=== PATIENT | male | born 1955 | race Caucasian/White ===

== ENCOUNTER 2020-09-09 10:01 | Observation (INO) | payer OTHER, SELFPAY ==
[2020-09-09] VITALS (7 sets, daily range): BP systolic 83–129; BP diastolic 57–91; PULSE 62–112; RESP 15–18; TEMP 36.1–37.8; O2SAT 97–98; BMI 29.7; BMI 29.4
--- NOTE | 2020-09-09 10:17 | EKG12_ITS ---
Test Reason : L EXT PAIN Blood Pressure : / mmHG Vent. Rate : 103 BPM Atrial Rate : 103 BPM P-R Int : 130 ms QRS Dur : 134 ms QT Int : 370 ms P-R-T Axes : 037 113 003 degrees QTc Int : 484 ms Sinus tachycardia Right bundle branch block Left posterior fascicular block Bifascicular block Abnormal ECG Confirmed by OSWALD ZAMAN, ENZO ([id number]), advertising editor HERNANDO AYALA ([id number]) on 09/10/2020 2:27:46 PM Referred By: PL Confirmed By:ENZO AKESR MD
--- NOTE | 2020-09-09 10:17 | VDLE_ITS ---
Reason For Study: Swelling RIGHT LEFT CFV is compressible, spontaneous, phasic, Lt CFV, LT FV, Lt PopV, Lt T/P Trunk, Lt competent and demonstrates normal GastrocV, Lt PTV, and Lt PeroV are dilated augmentation. and non compressible consistent with acute Procedure DVT This is a venous duplex using B-mode, color flow and spectral Doppler. Lt GSV is dilated and non compressible Exam performed portable in ED. consistent with acute SVT. A preliminary report was called and/or faxed to Dr. Quinones. VL/Venous Duplex US, Unilateral Interpretation Summary Acute deep vein thrombosis is noted in the left common femoral vein. Acute deep vein thrombosis is noted in the left femoral vein. Acute deep vein thrombosis is noted in the left popliteal vein. Acute deep vein thrombosis is noted in the left tibio-peroneal trunk. Acute susana p vein thrombosis is noted in the left posterior tibial vein. Acute deep vein thrombosis is noted in the left peroneal vein. Acute deep vein thrombosis is noted in the left gastrocnemius vein. Acute superficial thrombophlebitis is noted in the left great saphenous vein. Ordering Physician: Roque Quinones Performed By: Yara Hardy RDCS, RVT
--- NOTE | 2020-09-09 10:23 | EDS_ITS ---
HPI History of Present Illness HPI Narrative: Patient present with left lower extremity swelling. He noticed last evening that he had some very mild discomfort up in his left groin. He woke up at about 4 AM today and noticed the leg was more swollen. He states it does not hurt and he does not want anything for pain. He has no trauma or injury. He has no recent travel, surgery, immobilization, personal or family history of DVT or PE. He did have surgery for quadriceps repair back in the first week of January 2020. He had recovered well from that. He has no chest pain palpitations or shortness of breath. Chief Complaint: Lower Extremity Injury Informant: patient PFSH PFS Home Medications NK 09/09/20 [History Last Taken Unknown] Allergy/AdvReac Type Severity Reaction Status Date / Time No Known Allergies Allergy Verified 09/09/20 10:04 Family History (Updated 09/09/20 @ 15:[address] Aysha Mendez DO) Sister Breast cancer Sister Breast cancer Father COPD (chronic obstructive pulmonary disease) Other Cancer Surgical History (Updated 09/09/20 @ 15:[address] Aysha Mendez DO) H/O knee surgery Social History (Updated 09/09/20 @ 15:[address] Aysha Mendez DO) Smoking Status: Never smoker alcohol intake: never substance use type: does not use ROS ROS ED Eyes Eyes: Denies change in vision ENT ENT ED: Denies epistaxis Cardiovascular Cardiovascular: Denies chest pain, dyspnea on exertion or palpitations Respiratory/Chest Respiratory/Chest: Denies hemoptysis, shortness of breath at rest, sputum or wheezing Gastrointestinal Gastrointestinal: Denies abdominal pain, hematochezia or melena Genitourinary Genitourinary ED: Denies hematuria Musculoskeletal Musculoskeletal: Reports as per HPI; Denies back pain, joint pain or muscle weakness Integumentary Reports as per HPI; Denies lesions or rash Neurologic Neurologic: Denies focal weakness or numbness Psychiatric Psychiatric: Denies suicidal thoughts Endocrine Endocrinology: Denies polyuria Hematologic/Lymphatic Hematologic/Lymphatic: Denies easy bleeding Allergic/Immunologic Allergic/Immunologic ED: Denies throat swelling EXAM Physical Exam Const Vital Signs: 09/09/20 10:02 09/09/20 10:08 Temperature 96.9 F L Temperature Source Temporal Pulse Rate 112 H 109 H Respiratory Rate 18 15 Blood Pressure 121/82 H Blood Pressure Mean 95 Pulse Ox 97 98 Oxygen Delivery Method Room Air Room Air Positive well nourished, well developed and healthy appearing General Appearance ED: cooperative, well kempt and well developed Orientation / Consciousness: awake, oriented to person, oriented to place and oriented to time HEENT Reports normocephalic, head/scalp atraumatic and moist mucous membranes normocephalic and atraumatic Face and Sinus: normal facial exam; Negative for facial erythema or facial edema Nose: Negative for epistaxis General Ear: No hearing grossly impaired Mouth ED: Yes moist mucous membranes normal, No muffled voice and Yes other Mouth: No muffled voice and other Throat: posterior oropharynx abnormal Eyes conjunctivae normal General Eye ED: Yes normal appearance of both eyes Neck full ROM General: normal visual inspection Chest Wall Chest: symmetrical chest wall rise Resp normal respiratory effort, normal air movement and no use of accessory muscles Auscultation: Negative for wheezes Cardio regular rate, regular rhythm and no murmurs Peripheral Pulses: pulses 2+ throughout GI normal to inspection, nondistended, normoactive bowel sounds, soft to palpation and non-tender no CVA tenderness Back/Spine normal ROM General Back: Negative for CVA tenderness Cervical Spine: cervical ROM normal Extremity Extremity Narrative: Extremity is obviously larger than the left. It is somewhat ruborous in color. It is not cold. He has excellent biphasic distal pulses both dorsalis pedis and posterior tibial. Exam is most consistent with DVT. There is a well-healed scar over his knee but this does not look infected. Neuro oriented x3 Sensorium / Orientation: awake and alert Psych mental status grossly normal Skin no rashes or lesions noted General Skin Exam: Negative for mottling MDM MDM MDM Narrative Medical decision making narrative: Patient does have extensive DVT on the left leg. It does proximal to the inguinal ligament. In light of the wrap that he had which this developed, extensive nature I think inpatient management is more appropriate. The case was discussed with Dr. Mendez. Patient will be placed in observation to medical floor at this time. Lab Data Attestation: I reviewed the patient's lab results. Labs: Laboratory Results - last 24 hr 09/09/20 09/09/20 09/09/20 10:30 10:30 10:30 WBC 11.8 H RBC 6.22 H Hgb 18.1 H* Hct 53.3 MCV 85.7 MCH 29.1 MCHC 34.0 RDW Std Deviation 38.7 RDW Coeff of Katty 12.5 Plt Count 160 MPV 10.3 Immature Gran % (Auto) 0.400 Neut % (Auto) 77.5 H Lymph % (Auto) 11.7 L Mcnairy % (Auto) 8.9 Eos % (Auto) 0.8 Baso % (Auto) 0.7 Absolute Neuts (auto) 9.1 H Absolute Lymphs (auto) 1.38 Nucleated RBC % 0 Diff Path Review May foll Platelet Estimate ADEQUATE RBC Morphology NORM C+C PT 13.4 INR 1.1 APTT 29.6 Sodium 129 L Potassium 4.4 Chloride 94 L Carbon Dioxide 28.0 Anion Gap 7 BUN 14 Creatinine 1.26 Estim Creat Clear Calc 61.96 Est GFR (MDRD) Af Amer 74 Est GFR (MDRD) Non-Af 61 BUN/Creatinine Ratio 11.1 Glucose 388 H Calcium 9.0 Radiography Diagnostic Testing: Radiology Impression Venous Doppler Study 09/09/20 10:17 Interpretation Summary Acute deep vein thrombosis is noted in the left common femoral vein. Acute deep vein thrombosis is noted in the left femoral vein. Acute deep vein thrombosis is noted in the left popliteal vein. Acute deep vein thrombosis is noted in the left tibio-peroneal trunk. Acute deep vein thrombosis is noted in the left posterior tibial vein. Acute deep vein thrombosis is noted in the left peroneal vein. Acute deep vein thrombosis is noted in the left gastrocnemius vein. Acute superficial thrombophlebitis is noted in the left great saphenous vein. Ordering Physician: Roque Quinones Performed By: Yara Hardy, REBEL, RVT Discharge Plan Dx/Rx/DC Orders Clinical Impression: DVT (deep venous thrombosis) Disposition Disposition: Acute Care [facility] Discharge Date/Time: 09/09/20 12:54
--- NOTE | 2020-09-09 10:24 | NURSING ---
NO OLD EKGS
[2020-09-09 10:47] LABS: Absolute Lymphocyte Count 1.38 X10^3/uL (0.83-4.51); Absolute Neutrophil Count 9.1 X10^3/uL (2.0-7.7); Basophil# 0.08 X10^3/uL; Basophil% 0.7 % (0-1); Eosinophil# 0.09 X10^3/uL; Eosinophils% 0.8 % (0-5); Hematocrit 53.3 % (40-54); Lymphocyte # 1.38 X10^3/ul (0.83-4.51); Lymphocyte % 11.7 % (19-41); Mean Corpuscular Hgb 29.1 pg (27.0-32.0); Mean Corpuscular Volume 85.7 fL (80-94); Mean Platelet Vol. 10.3 fl (6.2-12.0); Monocyte# 1.04 X10^3/uL; Monocyte% 8.9 % (0-10); NRBC Flagged by Analyzer 0 % (0-5); Neutrophil # 9.11 X10^3/uL (2.7-7.7); Neutrophil % 77.5 % (47-70); Platelet Count 160 K/mm3 (150-450); RBC Distribution Width CV 12.5 % (11.6-14.6); RBC Distribution Width SD 38.7 fl (35.1-43.9); Red Blood Count 6.22 M/mm3 (4.6-6.2); White Blood Count 11.8 K/mm3 (4.4-11.0)
[2020-09-09 10:49] LABS: Differential Indicated SCAN CRITERIA MET; Hemoglobin 18.1 g/dL (13.0-16.5)
[2020-09-09 10:52] LABS: Anion Gap 7 (5-15); BUN 14 mg/dL (7-18); BUN/Creat Ratio 11.1 RATIO (10-20); Chloride 94 mmol/L (98-107); Creatinine, Serum 1.26 mg/dL (0.70-1.30); EST Glomerular Filtration Rate 61 mL/min (>60); Est Glom Filt Rate - Afr Amer 74 mL/min (>60); Estimated Creatinine Clearance 61.96 ml/min; Glucose 388 mg/dL (74-106); Potassium 4.4 mmol/L (3.5-5.1); Sodium Level 129 mmol/L (136-145)
[2020-09-09 10:54] LABS: International Normalized Ratio 1.1; Prothrombin Time (Protime)PT. 13.4 SECONDS (11.7-14.9)
[2020-09-09 10:55] LABS: Partial Thromboplast Time 29.6 Seconds (24.1-36.2)
[2020-09-09 11:19] LABS: Platelet Estimate ADEQUATE (ADEQ); Red Cell Morphology NORM C+C NORMAL (NORM C&C)
--- NOTE | 2020-09-09 12:35 | ECHOCS_ITS ---
Reason For Study: Possible PE, DVT Procedure This was a 2D Doppler, Color Flow transthoracic echocardiogram. The study was technically difficult. Exam performed portable in patient room. Left Ventricle Normal LV size. Left ventricular systolic function is normal. The estimated ejection fraction is 55 %. Stage 1 diastolic dysfunction. No regional wall motion abnormalities noted. Right Ventricle Normal RV size. Normal systolic function. Atria Normal left atrium. Normal right atrium. Mitral Valve Normal mitral valve. Tricuspid Valve Normal tricuspid valve. Aortic Valve The aortic valve is not well visualized. Pulmonic Valve Normal pulmonic valve. Great Vessels Normal aortic root. The pulmonary artery is normal size. Normal inferior vena cava. Pericardium/Pleural No pericardial effusion. Medication Diluted definity 3.5ml given slow IV push to enhance endocardial definition. MMode/2D Measurements & Calculations LVIDd: 4.3 cm IVSd: 1.0 cm Ao root diam: 3.0 cm LVIDs: 2.4 cm LVPWd: 0.87 cm FS: 44.4 % LAV(MOD-bp): 26.3 ml LA A4 area: 9.3 cm2 LA dimension(2D): 4.4 cm LAV(MOD-bp) Indexed: 12.5 ml/m2 LAV(MOD-sp2): 34.3 ml LAV(MOD-sp4): 16.5 ml Doppler Measurements & Calculations MV E max brendan: 62.3 cm/sec Lat Peak E' Brendan: 6.5 cm/sec Med Peak E' Brendan: 4.5 cm/sec MV A max brendan: 90.7 cm/sec E/E' lat: 9.6 E/E' med: 14.0 MV E/A: 0.69 Ao V2 max: 127.4 cm/sec LV V1 max: 96.5 cm/sec PA V2 max: 128.9 cm/sec Ao max P.5 mmHg LV V1 max P.7 mmHg ECHO/Echo Complete W/ Contrast Interpretation Summary Normal LV size. Left ventricular systolic function is normal. The estimated ejection fraction is 55 %. Stage 1 diastolic dysfunction. Contrast injection was performed. Ordering Physician: Aysha Mendez Performed By: Cady Sandoval RDCS
[2020-09-09] MEDS: Insulin Lispro 100 UNIT/ML INSULN.PEN 10 UNIT SC (12:40)
--- NOTE | 2020-09-09 12:43 | NURSING ---
[address] ARMENTA
[2020-09-09] MEDS: Enoxaparin 100 MG/ML Syringe 90 MG SC ×2 (15:12→21:02)
--- NOTE | 2020-09-09 15:18 | HP.PCM.HOS_ITS ---
HPI - General General Date of Admission: 09/09/20 HPI Narrative LITZY HERNDON, is a 64 M who presented to the emergency department [facility] on 09/09/2020 for left lower extremity swelling. The patient reports ported that last evening he noted that he had some very mild discomfort in his left groin and he woke up approximately 4 AM today and noticed his leg was swollen. He denies any associated pain but states it feels tight. He has had no recent trauma, injury, travel, immobilization, surgery, or family or personal history of DVT/PE. He did have a quadriceps repair in December 2019 but had recovered from that well and had not had any issues other than some mild swelling intermittently at the knee joint. He reports postoperatively he was on aspirin low-dose for the time being but he has been off this for some time. He does not follow regularly with a physician. He has had no cancer screening. He does admit to a family history of breast cancer and lung cancer. He denies any chest pain or shortness of breath. His vital signs were overall unremarkable. He is afebrile and was initially tachycardic on presentation but this resolved, his blood pressures were normal. His respiratory [place] rate was 15 and his oxygen saturation was 98% on room air. His CBC showed a mildly elevated white count and an erythrocytosis. His platelet count was normal. He had mild hyponatremia with a sodium of 129 but his blood sugar was 388 and sodium corrected is 133. His BMP was otherwise normal. Per discussion with the emergency physician a left lower extremity duplex showed extensive clot clear up into his femoral artery. The read on this is pending at admission. I reviewed his EKG and it shows a right bundle branch block with [id number]. He was started on enoxaparin. He is also given 10 units of subcu Lantus for his blood sugar. The patient does not have a history of diabetes. He will be admitted to the medical floor for further treatment. [facility] Home Medications NK 09/09/20 [History Last Taken Unknown] Allergy/AdvReac Type Severity Reaction Status Date / Time No Known Allergies Allergy Verified 09/09/20 10:04 Family History (Updated 09/09/20 @ 15:[address] Aysha Mendez DO) Sister Breast cancer Sister Breast cancer Father COPD (chronic obstructive pulmonary disease) Other Cancer Surgical History (Updated 09/09/20 @ 15:[address] Aysha Mendez DO) H/O knee surgery Social History (Updated 09/09/20 @ 15:[address] Aysha Mendez DO) Smoking Status: Never smoker alcohol intake: never substance use type: does not use ROS Constitutional Constitutional: Denies anorexia, change in weight, chills, fatigue, fever(s), malaise, night sweats, weakness or other Eyes Eyes: Denies blurry vision, change in eye color, change in vision, discharge from eye(s), double vision, erythema, eye pain, loss of vision or other ENT HEENT: Denies abnormal hearing, dysphagia, ear pain, epistaxis, headache(s), hearing loss, nasal congestion, nasal discharge, post nasal drip, sinus pressure, sore throat or other Cardiovascular Cardiovascular: Denies chest pain, claudication, dyspnea on exertion, edema, lightheadedness, orthopnea, palpitations, paroxysmal nocturnal dyspnea, rapid heart rate, syncope or other Respiratory/Chest Respiratory/Chest: Denies cough, dyspnea, excessive phlegm production, hemoptysis, productive cough, shortness of breath at rest, shortness of breath with exertion, wheezing or other Gastrointestinal Gastrointestinal: Denies abdominal pain, coffee ground emesis, constipation, diarrhea, dyspepsia, hematemesis, hematochezia, loose stools, melena, nausea, vomiting or other Genitourinary Genitourinary: Denies burning urination, difficulty urinating, dysuria, hematuria, nocturia, urinary frequency, urinary hesitancy, urinary incontinence, urinary urgency or other Musculoskeletal Musculoskeletal: Reports joint swelling and other Details: Severe leg swelling ; Denies arthralgias, back pain, joint pain, joint stiffness, myalgias or neck pain Neurologic Neurologic: Denies abnormal gait, abnormal speech, confusion, disequilibrium, dizziness, focal weakness, headache(s), numbness, paresthesias, seizure-like activity, seizures, syncope, tingling, tremor(s) or other Endocrine Endocrinology: Denies change in body appearance, cold intolerance, excessive sweating, heat intolerance, polydipsia, polyuria or other Hematologic/Lymphatic Hematologic/Lymphatic: Denies anemia, easy bleeding, easy bruising, lymphadenopathy or other Allergic/Immunologic Allergic/Immunologic: Denies rhinitis, hives, eczemia, asthma or other Vital Signs Vital Signs Vital Signs: 09/09/20 10:02 09/09/20 10:08 09/09/20 12:38 Temperature 96.9 F L 97.2 F L Temperature Source Temporal Temporal Pulse Rate 112 H 109 H 62 Respiratory Rate 18 15 18 Blood Pressure 121/82 H 129/91 H Blood Pressure [BP] Blood Pressure Mean 95 103 Blood Pressure Mean [BP] Blood Pressure Source Blood Pressure Source [BP] Blood Pressure Position Blood Pressure Position [BP] Blood Pressure Location Blood Pressure Location [BP] Pulse Ox 97 98 98 Oxygen Delivery Method Room Air Room Air Room Air 09/09/20 13:20 09/09/20 13:56 Temperature 98.1 F Temperature Source Oral Pulse Rate 91 Respiratory Rate 16 Blood Pressure 83/60 L Blood Pressure [BP] 101/57 L Blood Pressure Mean 67 Blood Pressure Mean [BP] 71 Blood Pressure Source Monitor Blood Pressure Source [BP] Monitor Blood Pressure Position Semi-Fowlers Blood Pressure Position [BP] Semi-Fowlers Blood Pressure Location Right Arm Blood Pressure Location [BP] Left Arm Pulse Ox 98 Oxygen Delivery Method Room Air Weight Weight: 93 kg Body Mass Index (BMI) 29.4 Physical Exam Const alert, oriented x3, no apparent distress and average body habitus Constitutional Narrative: Upper middle-aged white male, sitting up in bed, appears comfortable, at bedside, nontoxic General Appearance: cooperative HEENT normocephalic, head/scalp atraumatic, hearing grossly normal bilaterally, moist oral mucous membranes, oropharynx normal and dentition normal Mouth: oral and palatal mucosa normal Eyes Negative for PERRL, EOMs intact bilaterally or conjunctivae normal Neck No no lymphadenopathy, No supple, No no JVD and No no carotid bruits Neck Narrative: Trachea midline, Mallampati 2, no thrush Resp normal respiratory effort, no retractions, no use of accessory muscles and clear to auscultation bilaterally Auscultation: crackles, rales, rhonchi and wheezes Cardio regular rate, regular rhythm, S1 normal heart sound, S2 normal heart sound, no murmurs, no rub, no gallops, no clicks and no JVD GI normal to inspection, nondistended, normoactive bowel sounds, soft to palpation, non-tender, non-distended and hepatosplenomegaly Auscultation: hyperactive bowel sounds and hypoactive bowel sounds Palpation: tender, guarding and hernia Extremity Extremity Narrative: Marked edema left lower extremity cap refill is normal, pedal pulses are diminished secondary to edema, bluish hue with the appearance of poor venous return, no cyanosis or clubbing Skin no rashes or lesions noted, no wounds, skin turgor normal, no jaundice, no petechiae and no mottling Skin Narrative: Well-healed postoperative surgical incision of the left knee Neuro oriented x3, CN's II-XII intact bilaterally, moves all extremities and no focal motor deficits Sensorium / Orientation: awake, alert, oriented to person, oriented to place and oriented to time Speech: speech normal Psych affect normal Results Lab / Micro Data Result Diagrams: 09/09/20 10:30 09/09/20 10:30 Labs: Laboratory Results - last 24 hr 09/09/20 10:30: WBC 11.8 H, RBC 6.22 H, Hgb 18.1 H*, Hct 53.3, MCV 85.7, MCH 29.1, MCHC 34.0, RDW Std Deviation 38.7, RDW Coeff of Katty 12.5, Plt Count 160, MPV 10.3, Immature Gran % (Auto) 0.400, Neut % (Auto) 77.5 H, Lymph % (Auto) 11.7 L, Early % (Auto) 8.9, Eos % (Auto) 0.8, Baso % (Auto) 0.7, Absolute Neuts (auto) 9.1 H, Absolute Lymphs (auto) 1.38, Nucleated RBC % 0, Diff Path Review June, Platelet Estimate ADEQUATE, RBC Morphology NORM C+C 09/09/20 10:30: PT 13.4, INR 1.1, APTT 29.6 09/09/20 10:30: Sodium 129 L, Potassium 4.4, Chloride 94 L, Carbon Dioxide 28.0, Anion Gap 7, BUN 14, Creatinine 1.26, Estim Creat Clear Calc 61.96, Est GFR (MDRD) Af Amer 74, Est GFR (MDRD) Non-Af 61, BUN/Creatinine Ratio 11.1, Glucose 388 H, Calcium 9.0 Assessment & Plan Assessment/Plan (1) DVT (deep venous thrombosis): (2) EKG abnormalities: (3) Hyperglycemia: (4) Hyponatremia: (5) Erythrocytosis: PLAN: Left lower extremity DVT -Extensive clot on prelim for Doppler--> final report pending -Lovenox 1 mg/kg twice daily -Vascular checks every 3 hours with the extensiveness of the edema to monitor for compartment syndrome -Patient currently with dopplerable pulses and good cap refill, no tingling or numbness in the extremity, no pain -Consult vascular surgery given severity of disease and concern for post thromboembolic issues -Start NOAC once no surgical interventions are required and will likely be able to be discharged at that time -Would consider hypercoagulable work-up as an outpatient--> consider heme-onc referral at discharge -Patient also needs malignancy work-up -Never had colonoscopy -PSA pending -Patient with family history of colon CA and breast CA -Patient did have left patellar repair status post rupture but this was December 2019 Abnormal EKG -EKG concerning for pulmonary embolism but patient is not symptomatic and on room air -We will check echocardiogram -Right bundle johnnie noted on EKG as well Hyperglycemia -Suspect new onset DM-2 diagnosis -Start metformin 1000 mg twice daily -Accu-Cheks before meals and at bedtime -Carb controlled diet -Sliding scale insulin -Dietitian consult for diabetes -Hemoglobin A1c pending for a.m. -Start IV fluids as patient appears mildly dehydrated Erythrocytosis -Repeat in a.m. -Patient getting IV fluids for suspected mild dehydration with hyperglycemia and suspected osmotic diuresis Hyponatremia -Mild -Sodium is 129 but when corrected for blood glucose is 133 -Repeat in a.m. -Gentle hydration DVT prophylaxis -Full anticoagulation CODE STATUS -Full code Charges/Coding Visit Charges Inpatient E&M: 04585 Init Hosp L3
--- NOTE | 2020-09-09 16:55 | PCM.HOSP.N ---
Hospitalist Note Notified by floor that Dr. Castrejon would not be able to see the patient till Thursday as he is not in town. Discussed the case with Dr. Castrejon. Given the fact that he has complete noncompressibility in the left common femoral vein he states he would offer him thrombolysis to prevent long-term sequelae of thromboembolic disease of the lower extremity. Dr. Castrejon stated that we could transfer him to have this done or that he could see him this week in the office and get him done this week. I discussed this with the patient he would prefer to stay in town if it does not affect his acute treatment. We will plan on discharging him with Lovenox 1 mg/kg twice daily until he follows up with Dr. Castrejon. Dr. Castrejon also recommended elevation on 2-3 pillows while sitting and compression stocking thigh-high versus Taj bandage while up. He also agreed that a malignancy work-up should be pursued as the patient is not up-to-date on malignancy screening.
[2020-09-09] MEDS: 0.9% Normal Saline 1,000 ML 75 ML IV (17:00)
[2020-09-09] MEDS: metFORMIN HCl 1,000 MG Tablet 1000 MG PO (17:00)
[2020-09-09] MEDS: Insulin Lispro 100 UNIT/ML INSULN.PEN SC ×2 (17:02→21:02)
[2020-09-09 17:06] LABS: Bedside Glucose 283 mg/dL (70-110)
[2020-09-09 21:16] LABS: Bedside Glucose 333 mg/dL (70-110)
[2020-09-10 03:06] VITALS: BP 99/56; PULSE 100; RESP 16; TEMP 36.8; O2SAT 96
[2020-09-10 05:57] LABS: Hematocrit 46.6 % (40-54); Hemoglobin 16.2 g/dL (13.0-16.5); Mean Corp Hgb Conc 34.8 g/dL (32-36); Mean Corpuscular Volume 83.5 fL (80-94); Mean Platelet Vol. 10.5 fl (6.2-12.0); Platelet Count 142 K/mm3 (150-450); RBC Distribution Width CV 12.5 % (11.6-14.6); RBC Distribution Width SD 38.1 fl (35.1-43.9); Red Blood Count 5.58 M/mm3 (4.6-6.2); White Blood Count 13.8 K/mm3 (4.4-11.0)
[2020-09-10] MEDS: Insulin Lispro 100 UNIT/ML INSULN.PEN SC ×2 (06:14→11:23)
[2020-09-10] MEDS: 0.9% Normal Saline 1,000 ML 75 ML IV (06:15)
[2020-09-10 06:16] LABS: Anion Gap 6 (5-15); BUN 16 mg/dL (7-18); BUN/Creat Ratio 16.2 RATIO (10-20); Calcium,Total 8.2 mg/dL (8.5-10.1); Chloride 100 mmol/L (98-107); Creatinine, Serum 0.99 mg/dL (0.70-1.30); EST Glomerular Filtration Rate 81 mL/min (>60); Est Glom Filt Rate - Afr Amer 98 mL/min (>60); Estimated Creatinine Clearance 78.86 ml/min; Glucose 310 mg/dL (74-106); Magnesium 1.8 mg/dL (1.6-2.6); Phosphorus 2.8 mg/dL (2.5-4.9); Potassium 4.2 mmol/L (3.5-5.1); Sodium Level 131 mmol/L (136-145)
[2020-09-10 07:00] LABS: Bedside Glucose 313 mg/dL (70-110)
[2020-09-10 07:29] VITALS: O2SAT 96
--- NOTE | 2020-09-10 08:13 | NURSING ---
echo being performed at [facility]
[2020-09-10 08:15] VITALS: BP 98/61; PULSE 81; RESP 18; TEMP 37; O2SAT 99
[2020-09-10] MEDS: Enoxaparin 100 MG/ML Syringe 90 MG SC (08:55)
[2020-09-10] MEDS: metFORMIN HCl 1,000 MG Tablet 1000 MG PO (08:56)
[2020-09-10 09:24] LABS: Hemoglobin A1c 10.8 % (3.8-5.6)
--- NOTE | 2020-09-10 10:27 | PCM.DC ---
Discharge Instructions Diet Discharge Diet: Carb Control Diet Activity Discharge Activity: Return to Normal Activity Additional Activity Instructions:: Elevate left lower extremity on 2-3 pillows while sitting and continue compression thigh-high stockings left lower extremity Dressing / Incision Call your doctor if you observe: Shortness of breath, Dizziness and Chest pain Follow Up Care Test Results: Test results from this visit will be discussed in further detail at your follow-up appointment, if applicable. Discharge Plan Admission Admit Date/Time: 09/09/20 12:20 Primary Reason for Your Visit: DVT, new onset diabetes Attending Provider: Amanuel Terry Primary Care Provider: Care Physician,No Primary Consulting Providers: Judson Castrejon Instructions Additional Instructions / Restrictions: Check your blood sugar at home before meals and at bedtime. Document numbers to report to PCP at follow up. Discharge Orders/Prescriptions Prescriptions: New metformin 1,000 mg Tablet 1,000 mg PO BIDCM Qty: 60 RF: 0 enoxaparin 100 mg/mL Syringe 90 mg subcut Q12 5 Days Qty: 9 RF: 0 Other Ambulatory Orders: Glucometer (Routine) Location: None Selected Ordered By: Lilian Valencia NP Referrals / Follow Up: Judson Castrejon MD [STAFF PHYSICIAN] - See Referral Note (Follow up on Thursday09/12/20. Please make appt prior to dc. ) Care Physician,No Primary [Primary Care Provider] - In 1 Week Disposition Disposition (needs filled in before D/C Order can be placed): Home, Self Care
--- NOTE | 2020-09-10 10:46 | DS.PCM_ITS ---
Documented by User: Lilian Valencia NP, LESSON INSTRUCTOR-C 09/10/20 11:08 Providers Date of Admission: 09/09/20 Date of Discharge: 09/10/20 Primary Care Physician: Lynnette Primary Care Phys Consultations 09/09/20 13:38 Consult: Vascular Surgery Routine Consulting Provider: Judson Castrejon Reason for Consult: Extensive DVT R LE with marked venous occlusion EMERGENT Consult: No MD Notified: Yes Date Notified: 09/09/20 Time Notified: 16:34 Method of Notification: Text Reason For Visit: SEVERE DVT Diagnosis Discharge Diagnosis (1) DVT (deep venous thrombosis): Status: Acute Code(s): I82.409 - Acute embolism and thrombosis of unspecified deep veins of unspecified lower extremity (2) EKG abnormalities: Status: Acute Code(s): R94.31 - Abnormal electrocardiogram [ECG] [EKG] (3) Hyperglycemia: Status: Acute Code(s): R73.9 - Hyperglycemia, unspecified (4) Hyponatremia: Status: Acute Code(s): E87.1 - Hypo-osmolality and hyponatremia (5) Erythrocytosis: Status: Acute Code(s): D75.1 - Secondary polycythemia Medications at Discharge Home Medications enoxaparin 90 mg SUBCUT Q12 5 Days #9 ml 09/10/20 metformin 1,000 mg PO BIDCM #60 tab 09/10/20 Hospital Course Operations None Procedures 2-D Echocardiogram and - (duplex ultrasound ) Summary of Care Provided Minutes Spent on Discharge: 35 Hospital Course: Patient is a 64-year-old male admitted 09/09/20 due to left lower extremity swelling. 1. Extensive left lower extremity DVT-left lower extremity duplex ultrasound shows acute DVT in the left common femoral vein, left femoral vein, left popliteal vein, left tibioperoneal trunk, left posterior tibial vein, left fabiola jordyn vein, left gastrocnemius vein, left great saphenous vein. On therapeutic Lovenox 1 mg/kg. Discussed with vascular surgery. Patient will follow up with Dr. Castrejon, vascular surgery on Thursday. Plan for thrombolysis to prevent long-term sequela of thromboembolic disease. Planning treatment, will need transitioned to NOAC. Echocardiogram demonstrates an EF of 55%, stage I diastolic dysfunction. PSA screening pending at discharge. Patient will need hypercoagulable work-up and malignancy work-up. He has never had a colonoscopy. He has a family history of colon and breast cancer. Patient is to establish with PCP and follow-up for ongoing work-up. 2. New onset type 2 diabetes-hemoglobin A1c 10.8%. Initiated on metformin 1000 mg twice daily. Glucometer and testing supplies prescription sent at discharge. Instructed patient to check blood glucose before meals and at bedtim e and report findings to PCP at follow-up for additional medication recommendations. Patient seen and examined prior to discharge. Physical assessment as noted below. Patient is stable for discharge with follow up recommendations as noted above. This patient was seen by AMIE Mcdonnell under the supervision of Dr. Terry. Physical Exam Const alert, oriented x3 and no apparent distress Orientation / Consciousness: awake, oriented to person, oriented to place and oriented to time HEENT normocephalic and moist oral mucous membranes Eyes PERRL, EOMs intact bilaterally and conjunctivae normal Neck no lymphadenopathy Resp normal respiratory effort and clear to auscultation bilaterally Cardio regular rate, regular rhythm and no murmurs Peripheral Pulses: pulses 2+ throughout GI normal to inspection, nondistended, normoactive bowel sounds, non-tender and non-distended Extremity normal to inspection Skin no rashes or lesions noted Skin Narrative: Significant left lower extremity swelling, YENNY hose in place. Lesions: no lesions Rashes: no rashes Trauma: no lacerations or abrasions Neuro CN's II-XII intact bilaterally, no focal motor deficits, no sensory deficits noted and deep tendon reflexes 2+ bilaterally Psych mental status grossly normal and affect normal Weight / BMI Weight Weight: 205 lb 0.478 oz Body Mass Index (BMI) 29.4 ABG / Lab / Microbiology Data Result Diagrams: 09/10/20 05:34 09/10/20 05:34 Laboratory: Laboratory Results - last 24 hr 09/09/20 10:30: WBC 11.8 H, RBC 6.22 H, Hgb 18.1 H*, Hct 53.3, MCV 85.7, MCH 29.1, MCHC 34.0, RDW Std Deviation 38.7, RDW Coeff of Katty 12.5, Plt Count 160, MPV 10.3, Immature Gran % (Auto) 0.400, Neut % (Auto) 77.5 H, Lymph % (Auto) 11.7 L, [place] % (Auto) 8.9, Eos % (Auto) 0.8, Baso % (Auto) 0.7, Absolute Neuts (auto) 9.1 H, Absolute Lymphs (auto) 1.38, Nucleated RBC % 0, Diff Path Review June, Platelet Estimate ADEQUATE, RBC Morphology NORM C+C 09/09/20 10:30: PT 13.4, INR 1.1, APTT 29.6 09/09/20 10:30: Sodium 129 L, Potassium 4.4, Chloride 94 L, Carbon Dioxide 28.0, Anion Gap 7, BUN 14, Creatinine 1.26, Estim Creat Clear Calc 61.96, Est GFR (MDRD) Af Amer 74, Est GFR (MDRD) Non-Af 61, BUN/Creatinine Ratio 11.1, Glucose 388 H, Calcium 9.0 09/09/20 16:54: POC Glucose 283 H 09/09/20 21:00: POC Glucose 333 H 09/10/20 05:34: WBC 13.8 H, RBC 5.58, Hgb 16.2, Hct 46.6, MCV 83.5, MCH 29.0, MCHC 34.8, RDW Std Deviation 38.1, RDW Coeff of Katty 12.5, Plt Count 142 L, MPV 10.5 09/10/20 05:34: Sodium 131 L, Potassium 4.2, Chloride 100, Carbon Dioxide 25.0, Anion Gap 6, BUN 16, Creatinine 0.99, Estim Creat Clear Calc 78.86, Est GFR (MDRD) Af Amer 98, Est GFR (MDRD) Non-Af 81, BUN/Creatinine Ratio 16.2, Glucose 310 H, Calcium 8.2 L, Phosphorus 2.8, Magnesium 1.8 09/10/20 05:34: Hemoglobin A1c 10.8 H 09/10/20 06:13: POC Glucose 313 H Radiography Diagnostic Testing: Radiology Impression Venous Doppler Study 09/09/20 10:17 Interpretation Summary Acute deep vein thrombosis is noted in the left common femoral vein. Acute deep vein thrombosis is noted in the left femoral vein. Acute deep vein thrombosis is noted in the left popliteal vein. Acute deep vein thrombosis is noted in the left tibio-peroneal trunk. Acute deep vein thrombosis is noted in the left posterior tibial vein. Acute deep vein thrombosis is noted in the left peroneal vein. Acute deep vein thrombosis is noted in the left gastrocnemius vein. Acute superficial thrombophlebitis is noted in the left great saphenous vein. Ordering Physician: Roque Quinones Performed By: Yara Hardy RDCS, RVT Echocardiogram 09/09/20 12:35 Interpretation Summary Normal LV size. Left ventricular systolic function is normal. The estimated ejection fraction is 55 %. Stage 1 diastolic dysfunction. Contrast injection was performed. Ordering Physician: Aysha Mendez Performed By: Cady Sandoval RDCS D/C Instructions Discharge Diet: Carb Control Diet Additional Activity Instructions: Elevate left lower extremity on 2-3 pillows while sitting and continue compression thigh-high stockings left lower extremity Call your doctor if you observe: Shortness of breath, Dizziness and Chest pain Meaningful Use Info Meaningful Use Diagnoses (Choose all that apply): VTE VTE Anticoag overlap given w/in hospital stay or rx'd at dc?: Yes Pt receive overlap for 5 days?: Yes Discharge Plan Admission Admit Date/Time: 09/09/20 12:20 Primary Reason for Your Visit: DVT, new onset diabetes Attending Provider: Amanuel Terry Primary Care Provider: Care Physician,No Primary Consulting Providers: Judson Castrejon Instructions Additional Instructions / Restrictions: Check your blood sugar at home before meals and at bedtime. Document numbers to report to PCP at follow up. Discharge Orders/Prescriptions Prescriptions: New metformin 1,000 mg Tablet 1,000 mg PO BIDCM Qty: 60 RF: 0 enoxaparin 100 mg/mL Syringe 90 mg subcut Q12 5 Days Qty: 9 RF: 0 Other Ambulatory Orders: Glucometer (Routine) Location: None Selected Ordered By: Lilian Valencia NP Glucometer (Routine) Location: None Selected Ordered By: Lilian Valencia NP Referrals / Follow Up: Judson Castrejon MD [STAFF PHYSICIAN] - 09/12/20 10:00 am (Follow up on Thursday09/12/20. Please make appt prior to dc. on 3rd floor off central elevators in [facility] ) Care Physician,No Primary [Primary Care Provider] - In 1 Week Disposition Disposition (needs filled in before D/C Order can be placed): Home, Self Care Documented by User: Dr. Amanuel Terry MD 09/10/20 14:06 Providers Date of Admission: 09/09/20 Reason For Visit: SEVERE DVT Medications at Discharge Home Medications enoxaparin 90 mg SUBCUT Q12 5 Days #9 ml 09/10/20 metformin 1,000 mg PO BIDCM #60 tab 09/10/20 ABG / Lab / Microbiology Data Result Diagrams: 09/10/20 05:34 09/10/20 05:34 Discharge Plan Admission Admit Date/Time: 09/09/20 12:20 Primary Reason for Your Visit: DVT, new onset diabetes Attending Provider: Amanuel Terry Primary Care Provider: John Physician,No Primary Consulting Providers: Judson Castrejon Instructions Additional Instructions / Restrictions: Check your blood sugar at home before meals and at bedtime. Document numbers to report to PCP at follow up. Discharge Orders/Prescriptions Prescriptions: New metformin 1,000 mg Tablet 1,000 mg PO BIDCM Qty: 60 RF: 0 enoxaparin 100 mg/mL Syringe 90 mg subcut Q12 5 Days Qty: 9 RF: 0 Other Ambulatory Orders: Glucometer (Routine) Location: None Selected Ordered By: Lilian Valencia NP Glucometer (Routine) Location: None Selected Ordered By: Lilian Valencia NP Referrals / Follow Up: Judson Castrejon MD [STAFF PHYSICIAN] - 09/12/20 10:00 am (Follow up on Thursday09/12/20. Please make appt prior to dc. on 3rd floor off central elevators in [facility] ) Care Physician,No Primary [Primary Care Provider] - In 1 Week Disposition Disposition (needs filled in before D/C Order can be placed): Home, Self Care Charges/Coding Addendum Addendum: Dr. Terry: I personally reviewed the chart and examined the patient, and agree with the above findings. 64-year-old gentleman presented to the hospital with left lower extremity swelling. The edema was significant enough that Doppler was obtained in the ER which demonstrated significant clot burden in his left lower extremity. The case was discussed with vascular surgery who recommended thrombolysis as an outpatient and would recommend continued low molecular weight heparin treatment until then. Plan will be for follow-up with vascular surgery on Thursday. Of note his A1c did come back elevated at 10.8, would recommend continuation of metformin on discharge and then follow-up with PCP for further adjustments. He also met with a seed cleaner today for education on diet secondary to his type 2 diabetes. Visit Charges OBSV E&M: [id number] Observation care discharge
--- NOTE | 2020-09-10 11:09 | CASEMGMT ---
LAZARO BARFIELD called to [facility] for cost of Lovenox. Pt cost is $17.93. LAZARO BARFIELD in to pt room, female at bedside. Pt is aware of cost of medication. He states he has given himself the last two injections and denies concerns with this. Pt is also aware that a glucometer has been ordered for him. Information given on the [employer] brand should his cost after insurance be of concern. Pt verbalizes understanding. Pt states he is to check his blood sugar twice a day. He is aware to record a log to give to PCP of readings. Pt states the meat supervisor has not yet seen him. He is aware that if he needs further education regarding DM, there is an outpt clinic he can contact. Pt states he has received info on this from [facility]. Pt denies further needs.
[2020-09-10 11:31] LABS: Bedside Glucose 364 mg/dL (70-110)
[2020-09-10 13:09] LABS: Pathologist Review Reviewed
--- NOTE | 2020-09-10 13:13 | EX.NTREPO ---
Medical Nutrition Therapy - History Nutrition Services has been consulted to:: Conduct nutrition education Current diet/nutrition support order:: 1800 calorie; consistent-carbohydrate diet - Anthropometric Measurements Height:: 5 ft 10 in Weight:: 93 kg Body Mass Index (BMI):: 29.4 - Relevant Labs Relevant Labs:: WBC 13.8 K/mm3 (4.4-11.0) H 09/10/20 05:34 RBC 6.22 M/mm3 (4.6-6.2) H 09/09/20 10:30 Hgb 18.1 g/dL (13.0-16.5) H* 09/09/20 10:30 Plt Count 142 K/mm3 (150-450) L 09/10/20 05:34 Neut % (Auto) 77.5 % (47-70) H 09/09/20 10:30 Lymph % (Auto) 11.7 % (19-41) L 09/09/20 10:30 Absolute Neuts (auto) 9.1 X10^3/uL (2.0-7.7) H 09/09/20 10:30 Sodium 131 mmol/L (136-145) L 09/10/20 05:34 Chloride 94 mmol/L (98-107) L 09/09/20 10:30 Glucose 310 mg/dL (74-106) H 09/10/20 05:34 Hemoglobin A1c 10.8 % (3.8-5.6) H 09/10/20 05:34 Calcium 8.2 mg/dL (8.5-10.1) L 09/10/20 05:34 - Assessment Food and Nutrient Intake: PO/mary is good at emals and taking~100% since admit; pt reports good appetite 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 Reported UBW~225 lbs about 1 year ago so, calculated~9-10% wt loss x past 12 months which is not significant for malnutrition. Pt appears physically well nourished without signs/symptoms of muscle or fat wasting. Pt and very receptive to diabetes education today (see below for details). - Nutrition Diagnosis: Intake Problem Decreased Nutrient Needs (specify) Intake Problem - Etiology: for carbohydrate related to newly diagnosed DMII/endocrine dysfunction Intake Problem - Signs/Symptoms: as evidenced by HgbA1C 10.8% and fasting blood glucose 310 Status: Active Problem - Protein Calorie Malnutrition Evidence of Malnutrition Exists: No - Nutrition Intervention Nutrition Prescription: Estimated nutrition needs~7550-0486 kcal (25 kcal/Kg-300 kcal) and ~70-80 gm pro (.8 gm pro/Kg) per day. Estimated fluid needs~2708-4811 ml/day (25 ml/Kg). - Food / Nutrient Delivery Interventions Summary of nutrition intervention:: Nutrition education provided, Adjust diet order Nutrition support ordered as / adjusted to:: Will change diet to 2000 calorie/low fat/carbohydrate-controlled. Additional diet education as needed--encouraged to call RD as needed after d/c. Pt encouraged to seek follow-up in [facility] for ongoing diabetes self management. Nutrition education provided?: Yes - encouraged to call RD as needed Coordination of Nutrition Care: Strongly recommended follow-up in [facility] once pt has a PCP to refer him. - MNT Monitoring Active Nutrition Patient: Yes Nutrition Status: Requires Follow Up 3-5 Days
[2020-09-10 13:14] VITALS: BMI 29.4
[2020-09-11 16:36] LABS: PSA, Total 0.2 ng/mL (0.0-4.0)
== END 2020-09-10 13:23 | disposition home or self-care (01) ==
LOC: ED 10:50 → MS3 12:47
PROVIDERS: Admitting Provider Internal Medicine; Emergency Provider Emergency Medicine; Visit Provider Family Medicine
DX: I82.442 Acute embolism and thrombosis of left tibial vein (principal); I82.412 Acute embolism and thrombosis of left femoral vein; E87.1 Hypo-osmolality and hyponatremia; I45.10 Unspecified right bundle-branch block; D75.1 Secondary polycythemia; E11.65 Type 2 diabetes mellitus with hyperglycemia; E86.0 Dehydration; M79.89 Other specified soft tissue disorders; I45.2 Bifascicular block; R00.0 Tachycardia, unspecified; R60.0 Localized edema
CPT/HCPCS: 36415; 80048; 82962; 83036; 83735; 84100; 84153; 85025; 85027; 85610; 85730; 93005; 93306; 93971; 96360; 96361; 96372; 97802; 99218; 99251; 99285; J7030; Q9957; A4216; C8929; G0378; G0463; J3490

== ENCOUNTER → 2020-09-25 09:42 | Outpatient (CLI) | payer OTHER, SELFPAY ==
[2020-09-10 13:14] VITALS: BMI 29.4
[2020-09-17 10:25] VITALS: BMI 32.2
--- NOTE | 2020-09-25 09:46 | VDLE_ITS ---
Reason For Study: Swelling, Leg pain RIGHT LEFT CFV is compressible, spontaneous, phasic, GSV is normal. competent and demonstrates normal CFV is partially noncompressible and dilated augmentation. with minimal venous flow. Procedure FV prox-mid is compressible with normal This is a venous duplex using B-mode, color venous flow. flow and spectral Doppler. FV distal is partially compressible. Exam performed in department. PopV and T/P Trunk are partially compressible Compared to 09/09/2020. with minimal venous flow. A preliminary report was called and/or faxed PTV and PeroV is noncompressible and dialted. to Lucía. VL/Venous Duplex US, Unilateral Interpretation Summary Left common femoral vein with partial noncompressibility and decreased venous f low consistent with chronic DVT. Distal femoral through the pop and TP trunk also partially jolene sible with chronic DVT. Posterior tibial peroneal vein occluded. Ordering Physician: Judson Castrejon Referring Physician: Kristel Alvarado Performed By: Chrissy Escamilla RVT
[2020-09-25 11:25] LABS: Absolute Lymphocyte Count 1.84 X10^3/uL (0.83-4.51); Absolute Neutrophil Count 4.6 X10^3/uL (2.0-7.7); Basophil% 1.4 % (0-1); Eosinophil# 0.06 X10^3/uL; Eosinophils% 0.8 % (0-5); Hematocrit 48.7 % (40-54); Hemoglobin 16.2 g/dL (13.0-16.5); Lymphocyte # 1.84 X10^3/ul (0.83-4.51); Lymphocyte % 25.5 % (19-41); Mean Corp Hgb Conc 33.3 g/dL (32-36); Mean Corpuscular Hgb 28.6 pg (27.0-32.0); Mean Corpuscular Volume 85.9 fL (80-94); Mean Platelet Vol. 10.1 fl (6.2-12.0); Monocyte# 0.58 X10^3/uL; NRBC Flagged by Analyzer 0 % (0-5); Neutrophil # 4.62 X10^3/uL (2.7-7.7); Platelet Count 255 K/mm3 (150-450); RBC Distribution Width CV 12.5 % (11.6-14.6); Red Blood Count 5.67 M/mm3 (4.6-6.2); White Blood Count 7.2 K/mm3 (4.4-11.0)
[2020-09-25 11:51] LABS: Anion Gap 5 (5-15); BUN 16 mg/dL (7-18); BUN/Creat Ratio 18.6 RATIO (10-20); Calcium,Total 9.4 mg/dL (8.5-10.1); Chloride 100 mmol/L (98-107); Creatinine, Serum 0.86 mg/dL (0.70-1.30); EST Glomerular Filtration Rate 95 mL/min (>60); Est Glom Filt Rate - Afr Amer 115 mL/min (>60); Glucose 188 mg/dL (74-106); Potassium 4.2 mmol/L (3.5-5.1); Sodium Level 137 mmol/L (136-145)
== END ==
PROVIDERS: Nurse Practitioner Adult Health; PCP Internal Medicine; Referring Provider Surgery Vascular Surgery; Visit Provider Surgery Vascular Surgery
DX: M79.89 Other specified soft tissue disorders (principal); M79.605 Pain in left leg; I82.90 Acute embolism and thrombosis of unspecified vein; E11.9 Type 2 diabetes mellitus without complications; D75.1 Secondary polycythemia; Z86.718 Personal history of other venous thrombosis and embolism
CPT/HCPCS: 36415; 80048; 85025; 93971

== ENCOUNTER → 2020-10-15 09:35 | Outpatient (CLI) | payer OTHER, SELFPAY ==
--- NOTE | 2020-10-15 09:36 | US_ITS ---
STUDY: ABDOMINAL ULTRASOUND - RIGHT UPPER QUADRANT REASON FOR VISIT: Male, 64 years old evaluate pancreas, new onset dm, new dvt, discomfo TECHNIQUE: Ultrasound evaluation of the right upper quadrant was performed with real-time and static smith-scale imaging. TECHNICAL QUALITY: Adequate. COMPARISON: None. FINDINGS: Liver: The liver measures 14.1 cm. There is normal echogenicity of the liver. The bile ducts are within normal limits. There is hepatic color flow. The direction of portal flow is hepatopetal. There is no demonstrated mass lesion. Gallbladder: The patient is status post cholecystectomy. Common Bile Duct (C.B.D.): The common bile duct measures 4.3 mm. Pancreas: There is diffuse atrophy of the pancreas. There is normal echogenicity of the pancreas. There is no demonstrated pancreatic mass or cyst. Right Kidney: Normal size of the right kidney. The right kidney measures 11.7 cm x 5.1 cm x 7.3 cm. Normal renal cortex. The right cortex measures 2.1 cm. There is no demonstrated renal mass or cyst. There is no right hydronephrosis. US/Abdomen Limited IMPRESSION: Atrophy of the pancreas The patient is status post cholecystectomy. Electronically Signed: Luis M Camacho MD at 11:23 EDT , Service support ,
== END ==
PROVIDERS: PCP Internal Medicine; Referring Provider Internal Medicine; Visit Provider Internal Medicine
DX: R10.11 Right upper quadrant pain (principal)
CPT/HCPCS: 76705

== ENCOUNTER → 2020-10-17 10:49 | Outpatient (CLI) | payer OTHER, SELFPAY ==
[2020-10-18 13:32] LABS: C-Peptide 7.7 ng/mL (1.1-4.4)
== END ==
PROVIDERS: PCP Internal Medicine; Referring Provider Internal Medicine; Visit Provider Internal Medicine
DX: E11.9 Type 2 diabetes mellitus without complications (principal); K86.89 Other specified diseases of pancreas
CPT/HCPCS: 36415; 84681

== ENCOUNTER 2020-10-22 16:00 | Outpatient (RCR) | payer OTHER, SELFPAY ==
[2020-09-17 10:25] VITALS: BMI 32.2
== END 2020-10-23 23:59 ==
LOC: DC 16:00
PROVIDERS: PCP Internal Medicine; Visit Provider Nurse Practitioner Adult Health
DX: E11.9 Type 2 diabetes mellitus without complications (principal)
CPT/HCPCS: 97802; G0108

== ENCOUNTER → 2021-01-22 10:32 | Outpatient (CLI) | payer OTHER, SELFPAY ==
[2021-01-22 12:39] LABS: Cholesterol 162 mg/dL (200); High Density Lipoprotein 61 mg/dL; Triglycerides 106 mg/dL; Very Low Density Lipoprotein 21 mg/dL (5-40)
[2021-01-23 10:09] LABS: HEPATITIS B SURFACE AG Negative (Negative); Hepatitis B Core Ab Total Negative (Negative); Hepatitis C Ab <0.1 s/co ratio (0.0-0.9)
[2021-01-23 11:43] LABS: Ceruloplasmin 22.4 mg/dL (16.0-31.0); Hep B Surface Antibodies Non Reactive (.)
== END ==
PROVIDERS: PCP Internal Medicine; Referring Provider Internal Medicine; Visit Provider Internal Medicine
DX: E11.65 Type 2 diabetes mellitus with hyperglycemia (principal); E87.1 Hypo-osmolality and hyponatremia; K86.89 Other specified diseases of pancreas; R79.89 Other specified abnormal findings of blood chemistry
CPT/HCPCS: 36415; 80061; 82390; 86704; 86705; 86706; 86707; 86803; 87340; 87350

== ENCOUNTER → 2021-01-29 11:06 | Outpatient (CLI) | payer OTHER, SELFPAY | PROVIDERS: PCP Internal Medicine; Referring Provider Internal Medicine; Visit Provider Internal Medicine | DX: D75.1 Secondary polycythemia (principal); E11.9 Type 2 diabetes mellitus without complications; K86.89 Other specified diseases of pancreas; R79.89 Other specified abnormal findings of blood chemistry | CPT/HCPCS: 36415 ==

== ENCOUNTER 2021-02-08 07:39 | Day surgery (SDC) | payer OTHER, SELFPAY ==
[2021-02-08 08:03] VITALS: BP 91/45; PULSE 89; RESP 16; TEMP 35.8; O2SAT 95
[2021-02-08] MEDS: Lactated Ringers 1,000 ML 15 ML IV (08:15)
--- NOTE | 2021-02-08 08:22 | PCM.HP.BLA ---
History and Physical Date of Admission: 02/08/21 Intake Visit Reasons: CSCOPE, BLOOD THINNER Chief Complaint: c-scope Project Manager/Design Manager Required: No Is patient in pain?: No Allergies No Known Allergies Allergy (Verified 11/27/20 14:18) Medications glimepiride 2 mg tablet 2 mg PO QAM #30 tab 10/10/20 [Rx Confirmed 11/27/20] rivaroxaban 20 mg tablet 20 mg PO QPM #30 tab 10/10/20 [Rx Confirmed 11/27/20] metformin 1,000 mg tablet 1,000 mg PO BIDCM #180 tab 10/12/20 [Rx Confirmed 11/27/20] alcohol swabs 1 pad TOPICAL BID #100 ea 10/15/20 [Rx Confirmed 11/27/20] blood sugar diagnostic #10 ea 10/15/20 [History Confirmed 11/27/20] lancets 33 gauge #100 ea 10/15/20 [History Confirmed 11/27/20] PFSH Medical History (Updated 11/27/20 @ 14:16 by Charlotte Benavides) DVT (deep venous thrombosis) Erythrocytosis Hyperglycemia Hyponatremia Pancreatic atrophy RUQ discomfort Surgical History (Updated 11/27/20 @ 14:16 by Charlotte Benavides) H/O knee surgery H/O left knee surgery Family History Sister Breast cancer Sister Breast cancer Father COPD (chronic obstructive pulmonary disease) Other Cancer Social History household members: spouse housing: house number of children: 2 current occupational status: employed 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 what type of physical activity do you participate in: none seatbelt use: always HPI HPI HPI: LITZY HERNDON, is a 65 M who presents to the office today for surgical consultation regarding screening colonoscopy. Patient is referred by Dr. Kristel Alvarado and a written copy my surgical consult recommendations will return to him the patient had left quad surgery. Apparently month and after 2 months later he developed a DVT with pulmonary embolus. That occurred August 2020. He was seen by Dr. Judson Castrejon made sure the patient was on Xarelto therapy and had compression garments but did not feel that endovenous lysis was required. The patient states that he had been short of breath but that is improved. He returned to work very quickly. He has never had a colonoscopy. No family history of colon cancer. He did have a cholecystectomy 20 years ago and subsequently has urgent stools after eating. He was seen by Dr. Tiago Esquivel for evaluation of a potential hypercoagulable state. The patient apparently has a repeat visit on January [address] Esquivel. The patient states that he has had a PSA level checked. He states that request to continue to search for potential occult source of his DVT and PE is being pursued. A request for consideration of a colonoscopy. The patient's has been vaccinated for COVID-19. He has not been vaccinated. He states that no one has particularly discussed this with him. ROS General General: No weight change, appetite, fatigue, colon cancer, breast cancer or weakness HEENT HEENT: No difficulty swallowing, eye injury, eye surgery, swollen glands or hoarseness Endo Endocrine: Yes diabetes mellitus; No thyroid disease, thyroid cancer, Hair loss, heat intolerance or cold intolerance Skin Skin: No rash or changing moles Breast Breast: No left breast lump, right breast lump, nipple discharge, breast pain, abnormal mammogram, abnormal US or breast enlargement Musc Musculoskeletal: No back problems, arthritis, rheumatoid arthritis, gout or joint pain Cardio Cardiovascular: No murmur, pacemaker, heart disease, atrial fibrillation, high blood pressure, heart attack, heart stent, palpitations, shortness of breat with exertion or chest pain Psych Psychiatric: No depression, anxiety or hearing voices Resp Respiratory: No shortness of breath, No sleep apnea, No cough, No COPD, No asthma, No emphysema and No wheezing Gastro Gastrointestinal: No abdominal pain, No nausea or vomiting, Yes diarrhea, No constipation, No blood in stool, No acid reflux, No hemorrhoids, No ulcers, No gallbladder problem and No black,tarry stools Tin Hematologic: Yes blood thinners, No blood disorders, No bleeding, No anemia and Yes blood clots Neuro Neurologic: No system reviewed and no additional complaints, except as documented, No as per HPI, No abnormal gait, No abnormal hearing, No abnormal movements, No abnormal speech, No behavioral changes, No burning sensations, No confusion, No convulsions, No disequilibrium, No dizziness, No localized weakness, No frequent falls, No headache(s), No lack of coordination, No loss of vision, No memory loss, No numbness, No other visual disturbances, No radicular pain, No restless legs, No sensory deficit, No syncope, No tingling, No tremor(s), No weakness and No other Exam Const General: cooperative, healthy appearing, comfortable and no acute distress Nutritional Appearance: overweight Orientation: alert, awake and oriented x3 HENMT Head: normal to inspection Eyes General: appearance normal, both eyes and all related structures Resp Effort & Inspection: normal respiratory effort Auscultation: clear to auscultation bilaterally Cardio Rate: regular rate Rhythm: regular rhythm GI Other: Soft, lax abdominal wall, no focal mass, nontender, bowel sounds present unremarkable Musc Cervical Spine: normal cervical lordosis Neuro General: patient alert Cognition: normal cognition Extrem Other: Support hose left lower extremity. No palpable tenderness. No significant edema Psych Judgment: judgment good Assessment and Plan Assessment and Plan (1) DVT (deep venous thrombosis): Status: Acute Qualifiers: DVT location: lower extremity Affected thrombotic vein of extremity: femoral Chronicity: unspecified Laterality: left Qualified Code(s): I82.412 - Acute embolism and thrombosis of left femoral vein Comment: DVT of Left lower leg now on Xarelto. It may be related to trauma and repair of Left quadriceps muscle. No need for thrombophilia work up. Plan Details Additional Comments: I recommend to the patient a colonoscopy with possible biopsy or polypectomy as indicated. We have discussed benefit risk. I will have him hold his Xarelto just 1 day preprocedure. We will perform this with monitored anesthesia care. He is aware that I will be carefully inspecting for polyps or source of malignancy. He has had an opportunity to ask and have questions answered. I did discuss with him benefit risks of COVID-19 vaccination. He will consider pursuing. As noted his has already done so. I appreciate the opportunity of assisting with surgical care. Copy: Dr. Kristel Taylor M.D., F.A.C.S. I have re-examined the patient. There are no clinical changes since date of exam. Raymond Taylor M.D., F.Elsa.C.S.
[2021-02-08 09:20] VITALS: BP 76/62; BP 91/45; PULSE 83; RESP 16; TEMP 36.6; O2SAT 100
--- NOTE | 2021-02-08 09:22 | OP.COLON_ITS ---
Patient Name: Jeffrey Gilliland Procedure Date: 02/08/2021 8:58 AM Date of : 1955 Age: 65 Procedure: Colonoscopy Indications: Screening for colorectal malignant neoplasm Providers: Raymond Taylor MD Medicines: See the Anesthesia note for documentation of the administered medications Patient Profile: Last Colonoscopy: none. The patient's first colonoscopy is today. Complications: No immediate complications. Procedure: Pre-Anesthesia Assessment: - Prior to the procedure, a History and Physical was performed, and patient medications and allergies were reviewed. The patient's tolerance of previous anesthesia was also reviewed. The risks and benefits of the procedure and the sedation options and risks were discussed with the patient. All questions were answered, and informed consent was obtained. Prior Anticoagulants: The patient has taken no previous anticoagulant or antiplatelet agents. ASA Grade Assessment: II - A patient with mild systemic disease. After reviewing the risks and benefits, the patient was deemed in satisfactory condition to undergo the procedure. After I obtained informed consent, the scope was passed under direct vision. Throughout the procedure, the patient's blood pressure, pulse, and oxygen saturations were monitored continuously. The Duodenoscope was introduced through the anus and advanced to the cecum, identified by appendiceal orifice and ileocecal valve. The colonoscopy was performed without difficulty. The patient tolerated the procedure well. The quality of the bowel preparation was adequate to identify polyps. The ileocecal valve and the appendiceal orifice were photographed. Scope In: 9:02:51 AM Scope Withdrawal Time 0 hours 8 minutes 18 seconds Scope Out: 9:16:46 AM Total Procedure Duration Time 0 hours 13 minutes 55 seconds Findings: The digital rectal exam findings include non-thrombosed external hemorrhoids, non-thrombosed internal hemorrhoids, internal hemorrhoids that prolapse with straining, but spontaneously regress to the resting position (Grade II) and enlarged prostate. Multiple diverticula were found in the sigmoid colon and descending colon. The exam was otherwise without abnormality. Impression: - Non-thrombosed external hemorrhoids, non-thrombosed internal hemorrhoids, internal hemorrhoids that prolapse with straining, but spontaneously regress to the resting position (Grade II) and enlarged prostate found on digital rectal exam. - Diverticulosis in the sigmoid colon and in the descending colon. - The examination was otherwise normal. - No specimens collected. Recommendation: - Discharge patient to home. - Resume previous diet. - Continue present medications. - Repeat colonoscopy in 10 years for screening purposes. Procedure Code(s): --- Professional --- 65218, Colonoscopy, flexible; diagnostic, including collection of specimen(s) by brushing or washing, when performed (separate procedure) Diagnosis Code(s): --- Professional --- Z12.11, Encounter for screening for malignant neoplasm of colon K64.1, Second degree hemorrhoids K64.4, Residual hemorrhoidal skin tags N40.0, Benign prostatic hyperplasia without lower urinary tract symptoms K57.30, Diverticulosis of large intestine without perforation or abscess without bleeding CPT copyright 2017 [employer]. All rights reserved. The codes documented in this report are preliminary and upon medical coder review may be revised to meet current compliance requirements. Raymond Taylor MD 02/08/2021 9:21:57 AM This report has been signed electronically. Number of Addenda: 0 Note Initiated On: 02/08/2021 8:58 AM
--- NOTE | 2021-02-08 09:23 | OP.CCLET_ITS ---
02/08/2021 Tiago Esquivel MD [address] [facility] [facility] [address] [place] [address] Re : Colonoscopy procedure for Jeffrey Talat Dear Dr. Esquivel This procedure was performed on Monday, February 08, 2021. My impressions and recommendations are as follows: Impressions : - Non-thrombosed external hemorrhoids, non-thrombosed internal hemorrhoids, internal hemorrhoids that prolapse with straining, but spontaneously regress to the resting position (Grade II) and enlarged prostate found on digital rectal exam. - Diverticulosis in the sigmoid colon and in the descending colon. - The examination was otherwise normal. - No specimens collected. Recommendations : - Discharge patient to home. - Resume previous diet. - Continue present medications. - Repeat colonoscopy in 10 years for screening purposes. My findings are described in the full procedure note, which is enclosed. If I can be of further assistance, please feel free to contact me at Doctor phone number(s): Work: . Sincerely, Raymond Taylor MD 02/08/2021 9:21:57 AM This report has been signed electronically.
[2021-02-08 09:25] VITALS: BP 82/50; BP 91/45; PULSE 81; RESP 16; O2SAT 100
[2021-02-08 09:30] VITALS: BP 84/64; BP 91/45; PULSE 79; RESP 16; O2SAT 100
[2021-02-08 09:31] LABS: Bedside Glucose 121 mg/dL (70-110)
[2021-02-08 09:45] VITALS: BP 91/45; BP 92/78; PULSE 76; RESP 16; TEMP 36.2; O2SAT 100
[2021-02-08 10:11] VITALS: BP 91/45
== END 2021-02-08 10:20 ==
LOC: EN 07:40 → AC 07:42
PROVIDERS: PCP Internal Medicine; Referring Provider Internal Medicine; Visit Provider Surgery
PROC: 0DJD8ZZ Inspection of Lower Intestinal Tract, Via Natural or Artificial Opening Endoscopic (ICD-10-PCS; CPT 45378; principal; 2021-02-08 08:40)
DX: Z12.11 Encounter for screening for malignant neoplasm of colon (principal); K64.1 Second degree hemorrhoids; K64.4 Residual hemorrhoidal skin tags; K57.30 Diverticulosis of large intestine without perforation or abscess without bleeding; N40.0 Benign prostatic hyperplasia without lower urinary tract symptoms; E11.9 Type 2 diabetes mellitus without complications; Z86.718 Personal history of other venous thrombosis and embolism; Z79.01 Long term (current) use of anticoagulants; Z86.711 Personal history of pulmonary embolism; Z79.84 Long term (current) use of oral hypoglycemic drugs
CPT/HCPCS: 45378; 82962; J7120; J2405

== ENCOUNTER 2021-04-09 10:27 | Outpatient (CLI) | payer BC, SELFPAY ==
[2021-04-09 12:23] LABS: Absolute Lymphocyte Count 2.15 X10^3/uL (0.83-4.51); Absolute Neutrophil Count 5.6 X10^3/uL (2.0-7.7); Basophil# 0.09 X10^3/uL; Eosinophil# 0.06 X10^3/uL; Eosinophils% 0.7 % (0-5); Hematocrit 53.1 % (40-54); Lymphocyte # 2.15 X10^3/ul (0.83-4.51); Lymphocyte % 24.9 % (19-41); Mean Corp Hgb Conc 34.3 g/dL (32-36); Mean Corpuscular Hgb 30.2 pg (27.0-32.0); Mean Corpuscular Volume 88.2 fL (80-94); Mean Platelet Vol. 10.5 fl (6.2-12.0); Monocyte# 0.72 X10^3/uL; Monocyte% 8.3 % (0-10); NRBC Flagged by Analyzer 0 % (0-5); Neutrophil % 64.9 % (47-70); Platelet Count 206 K/mm3 (150-450); RBC Distribution Width CV 12.4 % (11.6-14.6); RBC Distribution Width SD 40.5 fl (35.1-43.9); Red Blood Count 6.02 M/mm3 (4.6-6.2); White Blood Count 8.6 K/mm3 (4.4-11.0)
[2021-04-09 12:32] LABS: ALB/GLOB Ratio 0.9 RATIO (0.9-2.4); AST(SGOT) 34 U/L (15-37); Alanine Aminotransfer ALT/SGPT 45 U/L (16-61); Albumin, Serum 3.7 g/dL (3.2-5.0); Alkaline Phosphatase 137 U/L (45-117); Anion Gap 3 (5-15); BUN 16 mg/dL (7-18); BUN/Creat Ratio 18.5 RATIO (10-20); Calcium,Total 9.6 mg/dL (8.5-10.1); Chloride 103 mmol/L (98-107); Creatinine, Serum 0.86 mg/dL (0.70-1.30); EST Glomerular Filtration Rate 95 mL/min (>60); Est Glom Filt Rate - Afr Amer 115 mL/min (>60); Glucose 85 mg/dL (74-106); Potassium 4.3 mmol/L (3.5-5.1); Protein, Total 7.7 g/dL (6.4-8.2); Sodium Level 138 mmol/L (136-145)
[2021-04-09 12:46] LABS: Differential Indicated SCAN CRITERIA MET
[2021-04-09 13:06] LABS: Hemoglobin 18.2 g/dL (13.0-16.5)
[2021-04-11 12:54] LABS: Pathologist Review Reviewed
== END 2021-04-09 23:59 | disposition home or self-care (01) ==
LOC: BIMLAB 10:28
PROVIDERS: PCP Internal Medicine; Referring Provider Internal Medicine; Visit Provider Internal Medicine
DX: E11.9 Type 2 diabetes mellitus without complications (principal); R79.9 Abnormal finding of blood chemistry, unspecified; D75.1 Secondary polycythemia
CPT/HCPCS: 36415; 80053; 85025

== ENCOUNTER 2021-04-15 09:44 | Outpatient (CLI) | payer BC, SELFPAY ==
[2021-04-16 17:23] LABS: Erythropoietin 10.4 mIU/mL (2.6-18.5)
== END 2021-04-15 23:59 | disposition home or self-care (01) ==
LOC: BIMLAB 09:45
PROVIDERS: PCP Internal Medicine; Visit Provider Internal Medicine
DX: D75.1 Secondary polycythemia (principal)
CPT/HCPCS: 36415; 82668

== ENCOUNTER 2021-04-24 13:33 | Outpatient (CLI) | payer BC, SELFPAY ==
[2021-04-24 15:22] LABS: Carboxyhemoglobin Frac (CO) 3.3 % (0.0-1.5)
== END 2021-04-24 23:59 | disposition home or self-care (01) ==
LOC: BIMLAB 13:34
PROVIDERS: PCP Internal Medicine; Referring Provider Internal Medicine; Visit Provider Internal Medicine
DX: D58.2 Other hemoglobinopathies (principal)
CPT/HCPCS: 36415; 81270; 82375

== ENCOUNTER 2021-05-28 12:22 | Outpatient (CLI) | payer BC, SELFPAY ==
--- NOTE | 2021-05-28 12:24 | VDLE_ITS ---
Reason For Study: swelling RIGHT LEFT CFV is compressible, spontaneous, phasic, GSV is normal. competent and demonstrates normal CFV is compressible, spontaneous, phasic, augmentation. competent, and demonstrates normal Procedure augmentation. This is a venous duplex using B-mode, color FV is compressible, spontaneous, phasic, flow and spectral Doppler. competent and demonstrates normal Exam performed in department. augmentation. The exam was diagnostic. POP V, T/P Trunk, PTV, and Peroneal V are partially compressible. VL/Venous Duplex US, Unilateral Interpretation Summary Chronic DVT noted in the left popliteal and calf veins. Ordering Physician: Judson Castrejon Performed By: Kris Allen, RVT
== END 2021-05-28 23:59 | disposition home or self-care (01) ==
LOC: CVS 12:23
PROVIDERS: PCP Internal Medicine; Referring Provider Surgery Vascular Surgery; Visit Provider Surgery Vascular Surgery
DX: M79.89 Other specified soft tissue disorders (principal); M79.605 Pain in left leg; I82.90 Acute embolism and thrombosis of unspecified vein; Z86.718 Personal history of other venous thrombosis and embolism
CPT/HCPCS: 93971

== ENCOUNTER → 2021-11-25 | Outpatient (CLI) | payer BC, SELFPAY ==
--- NOTE | 2021-11-25 12:20 | RAD_ITS ---
INDICATION: polycythemia, h/o DVT, chronic cough EXAMINATION/TECHNIQUE: X-RAY - XR Chest 2 Views COMPARISON: None. FINDINGS: The lungs are clear. Tortuous and calcified thoracic aorta. The heart is not enlarged. No pleural effusion or pneumothorax. Degenerative changes of the thoracic spine. RAD/Chest PA and Lateral IMPRESSION: No acute radiographic abnormalities. Electronically Signed: Herve Leon MD at 18:10 EDT ,
== END | disposition home or self-care (01) ==
LOC: RAD 12:19
PROVIDERS: PCP Internal Medicine; Referring Provider Internal Medicine Medical Oncology; Visit Provider Internal Medicine Medical Oncology
DX: I82.409 Acute embolism and thrombosis of unspecified deep veins of unspecified lower extremity (principal); R05.3 Chronic cough
CPT/HCPCS: 71046

== ENCOUNTER → 2022-04-24 | Outpatient (CLI) | payer BC, SELFPAY ==
[2022-04-24 12:24] LABS: Cholesterol 160 mg/dL (200); High Density Lipoprotein 51 mg/dL; Triglycerides 154 mg/dL; Very Low Density Lipoprotein 31 mg/dL (5-40)
[2022-04-24 12:33] LABS: Hemoglobin A1c 5.2 % (3.8-5.6)
[2022-04-24 12:35] LABS: Carboxyhemoglobin Frac (CO) 3.3 % (0.0-1.5)
== END | disposition home or self-care (01) ==
LOC: BIMLAB 10:30
PROVIDERS: PCP Internal Medicine; Referring Provider Internal Medicine; Visit Provider Internal Medicine
DX: D58.2 Other hemoglobinopathies (principal); E11.9 Type 2 diabetes mellitus without complications; K86.89 Other specified diseases of pancreas
CPT/HCPCS: 36415; 80061; 82375; 83036

== ENCOUNTER → 2022-06-19 | Outpatient (CLI) | payer BC, SELFPAY ==
--- NOTE | 2022-06-19 13:19 | PFTCOMP ---
COMPLETE PULMONARY FUNCTION TEST INTERPRETATION Brief HPI: Patient is a 66-year-old male, currently under the care of Dr. Gutiérrez, who presents to [facility] for complete pulmonary function tests secondary to diagnosis of cough. Respiratory therapist reports good effort and reproducible results. Interpretation: Forced expiration spirometry shows no large airways obstructive ventilatory defect with an FEV1 of 91% predicted. There is no significant bronchodilator response by strict ATS criteria. Spirograms are of good quality and plateau normally. The respiratory flow volume loop shows a normal pattern. Lung volumes by body plethysmography show a slightly decreased total lung capacity at 4.64 L, 76% predicted. All other lung volumes are reduced symmetrically. Diffusion capacity by carbon monoxide is normal at 113% predicted. The airway resistance is normal. No previous pulmonary function tests were available for review. Impression: Mild restrictive ventilatory defect with preserved spirometry and DLCO in a pattern consistent with musculoskeletal restriction.
== END | disposition home or self-care (01) ==
LOC: PSN 10:44
PROVIDERS: PCP Internal Medicine; Referring Provider Internal Medicine; Visit Provider Internal Medicine
DX: R05.3 Chronic cough (principal); D75.1 Secondary polycythemia; R06.83 Snoring; I10 Essential (primary) hypertension; R09.89 Other specified symptoms and signs involving the circulatory and respiratory systems
CPT/HCPCS: 94060; 94726; 94729; 95806

== ENCOUNTER → 2022-07-14 | Outpatient (CLI) | payer BC, SELFPAY | END | disposition home or self-care (01) | LOC: SL 12:00 | PROVIDERS: PCP Internal Medicine; Visit Provider Nurse Practitioner Acute Care | DX: Z00.00 Encounter for general adult medical examination without abnormal findings (principal) ==

== ENCOUNTER → 2022-07-24 | Outpatient (CLI) | payer BC, SELFPAY | END | disposition home or self-care (01) | LOC: SL 13:32 | PROVIDERS: PCP Internal Medicine; Visit Provider Nurse Practitioner Acute Care | DX: Z00.00 Encounter for general adult medical examination without abnormal findings (principal) ==

== ENCOUNTER → 2022-11-03 | Outpatient (CLI) | payer BC, SELFPAY ==
[2022-11-03 12:12] LABS: Absolute Lymphocyte Count 1.69 X10^3/uL (0.83-4.51); Absolute Neutrophil Count 5.1 X10^3/uL (2.0-7.7); Basophil# 0.08 X10^3/uL; Basophil% 1.1 % (0-1); Eosinophil# 0.14 X10^3/uL; Eosinophils% 1.9 % (0-5); Hematocrit 48.1 % (40-54); Lymphocyte # 1.69 X10^3/ul (0.83-4.51); Lymphocyte % 22.5 % (19-41); Mean Corp Hgb Conc 33.3 g/dL (32-36); Mean Corpuscular Hgb 30.2 pg (27.0-32.0); Mean Corpuscular Volume 90.9 fL (80-94); Mean Platelet Vol. 9.9 fl (6.2-12.0); Monocyte# 0.51 X10^3/uL; Monocyte% 6.8 % (0-10); NRBC Flagged by Analyzer 0 % (0-5); Neutrophil # 5.06 X10^3/uL (2.7-7.7); Neutrophil % 67.2 % (47-70); Platelet Count 188 K/mm3 (150-450); RBC Distribution Width CV 12.9 % (11.6-14.6); RBC Distribution Width SD 42.7 fl (35.1-43.9); Red Blood Count 5.29 M/mm3 (4.6-6.2); White Blood Count 7.5 K/mm3 (4.4-11.0)
[2022-11-03 12:44] LABS: Vitamin B12 357 pg/mL (211-911)
[2022-11-03 12:54] LABS: ALB/GLOB Ratio 0.9 RATIO (0.9-2.4); AST(SGOT) 31 U/L (15-37); Alanine Aminotransfer ALT/SGPT 29 U/L (16-61); Albumin, Serum 3.3 g/dL (3.2-5.0); Alkaline Phosphatase 126 U/L (45-117); Anion Gap 3 (5-15); BUN 21 mg/dL (7-18); BUN/Creat Ratio 14.3 RATIO (10-20); Calcium,Total 9.1 mg/dL (8.5-10.1); Chloride 104 mmol/L (98-107); Creatinine, Serum 1.47 mg/dL (0.70-1.30); EST Glomerular Filtration Rate 51 mL/min (>60); Est Glom Filt Rate - Afr Amer 62 mL/min (>60); Ferritin 772 ng/mL (26-388); Globulin 3.8 g/dL (2.2-4.2); Glucose 176 mg/dL (74-106); Iron 82 ug/dL (65-175); Iron Binding Capacity,Total 291 ug/dL (250-450); LDH 191 U/L (87-241); PERCENT IRON SATURATION 28.2 % (15.0-55.0); Potassium 4.6 mmol/L (3.5-5.1); Protein, Total 7.1 g/dL (6.4-8.2); Sodium Level 136 mmol/L (136-145)
[2022-11-03 13:06] LABS: CRP 4.94 mg/L (0.0-3.0); Cholesterol 150 mg/dL (200); High Density Lipoprotein 41 mg/dL; PSA,Total - Annual Screen 0.55 ng/mL (0.00-4.00); Triglycerides 154 mg/dL; Very Low Density Lipoprotein 31 mg/dL (5-40)
[2022-11-03 14:25] LABS: Hemoglobin A1c 5.4 % (3.8-5.6)
[2022-11-03 19:53] LABS: Carboxyhemoglobin Order ORDER TUBE
== END | disposition home or self-care (01) ==
LOC: BIMLAB 10:44
PROVIDERS: Internal Medicine Medical Oncology; PCP Internal Medicine; Referring Provider Internal Medicine; Visit Provider Internal Medicine
DX: R79.89 Other specified abnormal findings of blood chemistry (principal); I82.412 Acute embolism and thrombosis of left femoral vein; D58.2 Other hemoglobinopathies; E11.9 Type 2 diabetes mellitus without complications; I10 Essential (primary) hypertension; K86.89 Other specified diseases of pancreas; Z13.220 Encounter for screening for lipoid disorders; Z12.5 Encounter for screening for malignant neoplasm of prostate
CPT/HCPCS: 36415; 80053; 80061; 82375; 82607; 82728; 83036; 83540; 83550; 83615; 84153; 85025; 86140; G0103

== ENCOUNTER → 2022-11-10 | Outpatient (CLI) | payer BC, SELFPAY ==
[2022-11-10 12:50] LABS: Anion Gap 3 (5-15); BUN 26 mg/dL (7-18); BUN/Creat Ratio 18.3 RATIO (10-20); Calcium,Total 9.3 mg/dL (8.5-10.1); Chloride 100 mmol/L (98-107); Creatinine, Serum 1.42 mg/dL (0.70-1.30); EST Glomerular Filtration Rate 53 mL/min (>60); Est Glom Filt Rate - Afr Amer 64 mL/min (>60); Glucose 187 mg/dL (74-106); Potassium 4.9 mmol/L (3.5-5.1); Sodium Level 134 mmol/L (136-145)
== END | disposition home or self-care (01) ==
LOC: BIMLAB 11:03
PROVIDERS: PCP Internal Medicine; Referring Provider Internal Medicine; Visit Provider Internal Medicine
DX: R79.89 Other specified abnormal findings of blood chemistry (principal)
CPT/HCPCS: 36415; 80048

== ENCOUNTER → 2022-12-30 | Outpatient (CLI) | payer BC, SELFPAY ==
[2022-12-30 11:28] LABS: Anion Gap 3 (5-15); BUN 22 mg/dL (7-18); BUN/Creat Ratio 15.6 RATIO (10-20); Calcium,Total 9.1 mg/dL (8.5-10.1); Chloride 104 mmol/L (98-107); Creatinine, Serum 1.41 mg/dL (0.70-1.30); EST Glomerular Filtration Rate 53 mL/min (>60); Est Glom Filt Rate - Afr Amer 65 mL/min (>60); Glucose 104 mg/dL (74-106); Potassium 3.8 mmol/L (3.5-5.1); Sodium Level 136 mmol/L (136-145)
== END | disposition home or self-care (01) ==
LOC: LAB 10:40
PROVIDERS: PCP Internal Medicine; Visit Provider Internal Medicine
DX: R79.89 Other specified abnormal findings of blood chemistry (principal)
CPT/HCPCS: 36415; 80048

== ENCOUNTER → 2022-12-30 | Outpatient (CLI) | payer BC, SELFPAY ==
--- NOTE | 2023-01-02 07:57 | PFTCOMP_ITS ---
COMPLETE PULMONARY FUNCTION TEST INTERPRETATION Brief HPI: Patient is a 67-year-old male, currently under the care of myself, who presents to [facility] for complete pulmonary function tests secondary to diagnosis of chronic cough. Respiratory therapist reports good effort and reproducible results. Interpretation: Forced expiration spirometry shows no large airways obstructive ventilatory defect with an FEV1 of 91% predicted. There is no significant bronchodilator response by strict ATS criteria. Spirograms are of good quality and plateau normally. The respiratory flow volume loop shows decreased expiratory flow rates at high lung volumes consistent with small airways obstruction. Lung volumes by body plethysmography show a slightly decreased total lung capacity at 4.98 L, 74% predicted. All other lung volumes are within normal limits. Diffusion capacity by carbon monoxide is normal at 107% predicted. The airway resistance is normal. Compared to previous pulmonary function tests from 06/19/2022, there has been no significant change. Impression: Mild restrictive ventilatory defect with preserved DLCO and spirometry
== END | disposition home or self-care (01) ==
PROVIDERS: PCP Internal Medicine; Referring Provider Internal Medicine; Visit Provider Internal Medicine
DX: R05.3 Chronic cough (principal)
CPT/HCPCS: 94060; 94726; 94729

== ENCOUNTER → 2023-03-30 | Outpatient (CLI) | payer BC, SELFPAY ==
[2023-03-30 12:58] LABS: Anion Gap 0 (5-15); BUN 22 mg/dL (7-18); BUN/Creat Ratio 16.5 RATIO (10-20); Calcium,Total 8.8 mg/dL (8.5-10.1); Chloride 103 mmol/L (98-107); Creatinine, Serum 1.33 mg/dL (0.70-1.30); EST Glomerular Filtration Rate 57 mL/min (>60); Est Glom Filt Rate - Afr Amer 69 mL/min (>60); Glucose 65 mg/dL (74-106); Potassium 4.5 mmol/L (3.5-5.1); Sodium Level 135 mmol/L (136-145)
== END | disposition home or self-care (01) ==
LOC: BIMLAB 10:41
PROVIDERS: PCP Internal Medicine; Visit Provider Internal Medicine
DX: I10 Essential (primary) hypertension (principal); R79.89 Other specified abnormal findings of blood chemistry
CPT/HCPCS: 36415; 80048

== ENCOUNTER → 2023-06-01 | Outpatient (CLI) | payer BC, SELFPAY ==
--- NOTE | 2023-06-01 09:15 | US_ITS ---
STUDY: ABDOMINAL ULTRASOUND - RIGHT UPPER QUADRANT; ELASTOGRAPHY REASON FOR VISIT: Male, 67 years old. High ferritin. TECHNIQUE: Ultrasound evaluation of the right upper quadrant was performed with real-time and static smith-scale imaging. Point quantification shear wave elastography was performed ([employer]). TECHNICAL QUALITY: Adequate. COMPARISON: Comparison is made with prior study October 15, 2020. FINDINGS: Liver: The liver measures 15.1 cm. There is increased echogenicity consistent with fatty infiltration. The bile ducts are within normal limits. There is hepatic color flow. The direction of portal flow is hepatopetal. There is no demonstrated mass lesion. Median liver stiffness measured 7.7 kPa. Gallbladder: The patient is status post cholecystectomy. Common Bile Duct (C.B.D.): The common bile duct measures 6 mm. Pancreas: The pancreas was not visualized due to overlying bowel gas. Right Kidney: Normal size of the right kidney. The right kidney measures 11.3 cm x 6 x 5.8 cm. Normal renal cortex. The right cortex measures 1.3 cm. There is no demonstrated renal mass or cyst. There is no right hydronephrosis. US/ABD Limited w/ Elastography IMPRESSION: 1. Liver stiffness measures 7.7 kPa compatible with F2-F3 (Mild to moderate liver fibrosis) Metavir score. 2. Fatty infiltration of the liver. Electronically Signed: Luis M Camacho MD at 12:49 EDT ,
== END | disposition home or self-care (01) ==
LOC: US 09:14
PROVIDERS: PCP Internal Medicine; Referring Provider Internal Medicine Medical Oncology; Visit Provider Internal Medicine Medical Oncology
DX: D75.1 Secondary polycythemia (principal); R79.89 Other specified abnormal findings of blood chemistry
CPT/HCPCS: 76705; 76981

== ENCOUNTER → 2023-11-25 | Outpatient (CLI) | payer MEDICARE, SELFPAY ==
[2023-11-25 11:56] LABS: Carboxyhemoglobin Order ORDER TUBE
[2023-11-25 12:25] LABS: Carboxyhemoglobin Frac (CO) 1.9 % (0.0-1.5)
[2023-11-25 12:36] LABS: Anion Gap 3 (5-15); BUN 18 mg/dL (7-18); BUN/Creat Ratio 12.8 RATIO (10-20); Calcium,Total 9.5 mg/dL (8.5-10.1); Chloride 102 mmol/L (98-107); Creatinine, Serum 1.41 mg/dL (0.70-1.30); EST Glomerular Filtration Rate 53 mL/min (>60); Est Glom Filt Rate - Afr Amer 65 mL/min (>60); Glucose 122 mg/dL (74-106); Potassium 4.5 mmol/L (3.5-5.1); Sodium Level 135 mmol/L (136-145)
== END | disposition home or self-care (01) ==
LOC: BIMLAB 10:55
PROVIDERS: PCP Internal Medicine; Referring Provider Internal Medicine Medical Oncology; Visit Provider Internal Medicine Medical Oncology
DX: R79.89 Other specified abnormal findings of blood chemistry (principal)
CPT/HCPCS: 36415; 80048; 82375

== ENCOUNTER → 2024-03-19 | Outpatient (CLI) | payer MEDICARE, SELFPAY ==
--- NOTE | 2024-03-19 08:42 | US_ITS ---
STUDY: ABDOMINAL ULTRASOUND - RIGHT UPPER QUADRANT; ELASTOGRAPHY REASON FOR VISIT: Male, 68 years old. Hepatic fibrosis. TECHNIQUE: Ultrasound evaluation of the right upper quadrant was performed with real-time and static smith-scale imaging. Point quantification shear wave elastography was performed ([employer]). TECHNICAL QUALITY: Adequate. COMPARISON: Comparison is made with prior study June 01, 2023. FINDINGS: Liver: The liver measures 15.1 cm. There is increased echogenicity consistent with fatty infiltration. The bile ducts are within normal limits. There is hepatic color flow. The direction of portal flow is hepatopetal. There is no demonstrated mass lesion. Median liver stiffness measured 8.4 kPa. Gallbladder: The patient is status post cholecystectomy. Common Bile Duct (C.B.D.): The common bile duct measures 7.1 mm. Pancreas: There is normal echogenicity of the visualized pancreas. There is no demonstrated pancreatic mass or cyst. Right Kidney: Normal size of the right kidney. The right kidney measures 11.6 cm x 6.7 cm x 6.6 cm. Normal renal cortex. The right cortex measures 1.6 cm. There is no demonstrated renal mass or cyst. There is no right hydronephrosis. IMPRESSION: 1. Liver stiffness measures 8.4 kPa compatible with F2-F3 (Mild to moderate liver fibrosis) Metavir score. Electronically Signed: Luis M Camacho MD at 13:56 EST , STUDY: ABDOMINAL ULTRASOUND - LEFT UPPER QUADRANT REASON FOR EXAM: Male, 68 years old. Liver fibrosis -- including spleen, high Hb 17.1 TECHNIQUE: Transabdominal ultrasound was performed with real-time and static smith scale imaging. TECHNICAL QUALITY: Adequate. COMPARISON: None. FINDINGS: Spleen: Normal size of the spleen. The spleen measures 11.8 cm x 9.2 cm x 7 cm. US/ABD Limited w/ Elastography IMPRESSION: No evidence of splenomegaly. Electronically Signed: Luis M Camacho MD at 13:56 EST ,
--- NOTE | 2024-03-19 09:25 | RAD_ITS ---
STUDY: X-RAY CHEST REASON FOR EXAM: Male, 68 years old. Chronic cough. TECHNIQUE: Frontal and lateral views of the chest. COMPARISON: November 25, 2021 FINDINGS: The lungs are clear and expanded. There is no demonstrated pleural abnormality. Normal size heart. Normal mediastinum and aly. Normal visualized pulmonary arteries. Normal visualized aortic arch and descending thoracic aorta. Normal visualized thoracic spine. Normal visualized ribs, clavicles, and shoulders. There is no demonstrated abnormality of the visualized soft tissue structures of the upper abdomen. RAD/Chest PA and Lateral IMPRESSION: No interval change. Normal chest. Electronically Signed: Homer Sanchez MD at 10:44 [facility] ,
== END | disposition home or self-care (01) ==
PROVIDERS: PCP Internal Medicine; Referring Provider Internal Medicine; Visit Provider Internal Medicine
DX: R05.3 Chronic cough (principal); I82.412 Acute embolism and thrombosis of left femoral vein; K52.9 Noninfective gastroenteritis and colitis, unspecified; K74.00 Hepatic fibrosis, unspecified; D58.2 Other hemoglobinopathies; R79.89 Other specified abnormal findings of blood chemistry; I10 Essential (primary) hypertension; R09.89 Other specified symptoms and signs involving the circulatory and respiratory systems
CPT/HCPCS: 71046; 76705; 76981

== ENCOUNTER → 2024-03-22 | Outpatient (CLI) | payer MEDICARE, SELFPAY ==
[2024-03-22 12:16] LABS: Absolute Lymphocyte Count 1.91 X10^3/uL (0.83-4.51); Absolute Neutrophil Count 6.6 X10^3/uL (2.0-7.7); Eosinophil# 0.14 X10^3/uL; Eosinophils% 1.5 % (0-5); Hemoglobin 16.5 g/dL (13.0-16.5); Lymphocyte # 1.91 X10^3/ul (0.83-4.51); Mean Corp Hgb Conc 33.7 g/dL (32-36); Mean Corpuscular Hgb 29.5 pg (27.0-32.0); Mean Corpuscular Volume 87.5 fL (80-94); Mean Platelet Vol. 9.7 fl (6.2-12.0); Monocyte# 0.81 X10^3/uL; Monocyte% 8.5 % (0-10); NRBC Flagged by Analyzer 0 % (0-5); Neutrophil # 6.55 X10^3/uL (2.7-7.7); Neutrophil % 68.6 % (47-70); Platelet Count 210 K/mm3 (150-450); RBC Distribution Width CV 12.3 % (11.6-14.6); RBC Distribution Width SD 39.8 fl (35.1-43.9); White Blood Count 9.6 K/mm3 (4.4-11.0)
[2024-03-22 12:24] LABS: International Normalized Ratio 0.9; Prothrombin Time (Protime)PT. 12.8 SECONDS (11.7-14.9)
[2024-03-22 12:29] LABS: Hemoglobin A1c 5.5 % (3.8-5.6)
[2024-03-22 12:30] LABS: Vitamin B12 539 pg/mL (211-911); Vitamin D,25 Hydroxy 20.9 ng/mL
[2024-03-22 13:00] LABS: ALB/GLOB Ratio 0.9 RATIO (0.9-2.4); AST(SGOT) 29 U/L (15-37); Alanine Aminotransfer ALT/SGPT 27 U/L (16-61); Albumin, Serum 3.6 g/dL (3.2-5.0); Alkaline Phosphatase 131 U/L (45-117); Anion Gap 7 (5-15); BUN 23 mg/dL (7-18); BUN/Creat Ratio 14.9 RATIO (10-20); CRP 8.31 mg/L (0.0-3.0); Calcium,Total 9.6 mg/dL (8.5-10.1); Chloride 97 mmol/L (98-107); Cholesterol 171 mg/dL (200); Creatinine, Serum 1.54 mg/dL (0.70-1.30); EST Glomerular Filtration Rate 48 mL/min (>60); Est Glom Filt Rate - Afr Amer 58 mL/min (>60); Globulin 4.2 g/dL (2.2-4.2); Glucose 130 mg/dL (74-106); High Density Lipoprotein 58 mg/dL; Iron 74 ug/dL (65-175); Iron Binding Capacity,Total 352 ug/dL (250-450); Lipase 90 U/L (13-75); Potassium 3.8 mmol/L (3.5-5.1); Protein, Total 7.8 g/dL (6.4-8.2); Sodium Level 134 mmol/L (136-145); Triglycerides 138 mg/dL; Very Low Density Lipoprotein 28 mg/dL (5-40)
[2024-03-23 14:08] LABS: ANTINUCLEAR ANTIBODIES DIRECT Negative (Negative); Anti-Mitochondrial AB <20.0 Units (0.0-20.0)
[2024-03-26 06:08] LABS: AFP, Tumor Marker 2.2 ng/mL (0.0-8.4); Albumin 3.6 g/dL (2.9-4.4); Alpha-1-Globulins 0.3 g/dL (0.0-0.4); Alpha-2-Globulins 0.7 g/dL (0.4-1.0); Anti-Smooth Muscle ABS 3 Units (0-19); Ceruloplasmin 22.5 mg/dL (16.0-31.0); Copper, Serum or Plasma 114 ug/dL (69-132); Cytoplasmic Ab (C-ANCA) <1:20 titer (Neg:<1:20); Endomysial Antibody IgA Negative (Negative); Gamma Globulin 1.2 g/dL (0.4-1.8); Immunoglobulin A 342 mg/dL (61-437); Immunoglobulin E 20 IU/mL (6-495); Immunoglobulin G 1325 mg/dL (603-1613); Immunoglobulin M 57 mg/dL (20-172); PROEL- TOTAL PROTEIN 6.9 g/dL (6.0-8.5); Perinuclear Ab (P-ANCA) <1:20 titer (Neg:<1:20); Transferrin 222 mg/dL (177-329); t-Transglutaminase IgA <2 U/mL (0-3)
== END | disposition home or self-care (01) ==
LOC: BIMLAB 10:43
PROVIDERS: PCP Internal Medicine; Referring Provider Internal Medicine; Visit Provider Internal Medicine
DX: D58.2 Other hemoglobinopathies (principal); I82.412 Acute embolism and thrombosis of left femoral vein; K52.9 Noninfective gastroenteritis and colitis, unspecified; K74.00 Hepatic fibrosis, unspecified; R79.89 Other specified abnormal findings of blood chemistry; R05.3 Chronic cough; I10 Essential (primary) hypertension; R09.89 Other specified symptoms and signs involving the circulatory and respiratory systems; M81.0 Age-related osteoporosis without current pathological fracture
CPT/HCPCS: 36415; 80053; 80061; 82105; 82306; 82390; 82525; 82607; 82746; 82784; 82785; 83036; 83516; 83540; 83550; 83690; 84165; 84443; 84466; 85025; 85610; 86037; 86038; 86140; 86255; 86334

== ENCOUNTER → 2024-03-25 | Outpatient (CLI) | payer MEDICARE, SELFPAY ==
[2024-03-29 15:07] LABS: Giardia Lamblia, Stool EIA Negative (Negative)
== END | disposition home or self-care (01) ==
PROVIDERS: Internal Medicine; PCP Internal Medicine; Referring Provider Internal Medicine; Visit Provider Internal Medicine
DX: I82.412 Acute embolism and thrombosis of left femoral vein (principal); K52.9 Noninfective gastroenteritis and colitis, unspecified; K74.00 Hepatic fibrosis, unspecified; D58.2 Other hemoglobinopathies; R79.89 Other specified abnormal findings of blood chemistry; R05.3 Chronic cough; I10 Essential (primary) hypertension; R09.89 Other specified symptoms and signs involving the circulatory and respiratory systems
CPT/HCPCS: 82274; 82653; 82705; 83630; 83993; 87329; 87506

== ENCOUNTER → 2024-05-20 | Outpatient (CLI) | payer MEDICARE, SELFPAY ==
--- NOTE | 2024-05-20 08:44 | CDU_ITS ---
Reason For Study Reason For Study: Amaurosis Fugax Rt. Velocities/BP Lt. Velocities/BP Prox CCA 99.8/16.3 cm/sec. Prox CCA 92.5/18.8 cm/sec. Mid CCA 82.6/16.3 cm/sec. Mid CCA 83.9/11.4 cm/sec. Dist CCA 74.0/16.3 cm/sec. Dist CCA 80.2/16.3 cm/sec. Prox ICA 70.4/13.9 cm/sec. Prox ICA 69.6/13.5 cm/sec. Mid ICA 70.4/24.9 cm/sec. Mid ICA 66.3/26.7 cm/sec. Dist ICA 94.9/28.6 cm/sec. Dist ICA 88.3/33.3 cm/sec. Rt. ICA/CCA = 1.1. Lt. ICA/CCA = 1.0. Prox ECA 86.3/7.7 cm/sec. Prox ECA 92.5/13.9 cm/sec. Rt. Vert. 51.9/15.1 cm/sec. Right Extracranial There is intimal thickening but no significant atherosclerotic plaque noted in the right common carotid artery. There is heterogeneous, irregular atherosclerotic plaque noted in the right internal carotid artery. There is intimal thickening but no significant atherosclerotic plaque noted in the right external carotid artery. Antegrade flow is noted in the right vertebral artery. Left Extracranial There is intimal thickening but no significant atherosclerotic plaque noted in the left common carotid artery. There is intimal thickening but no significant atherosclerotic plaque noted in the left internal carotid artery. There is intimal thickening but no significant atherosclerotic plaque noted in the left external carotid artery. Retrograde flow noted in Lt Vertebral Artery. Procedure Carotid Duplex [id number]. This is a Carotid Duplex examination using B-mode, color flow and specral Doppler. Exam performed in department. VL/Carotid Duplex Ultrasound Interpretation Summary Mild (<50%) stenosis right extracranial internal carotid. Normal left extracranial internal carotid. The Right vertebral is patent and antegrade. The Left vertebral flow is retrograde. Ordering Physician: Raji Fay Referring Physician: Kristel Alvarado M.D. Performed By: Cynthia Valiente RVT
== END | disposition home or self-care (01) ==
PROVIDERS: PCP Internal Medicine; Referring Provider Ophthalmology; Visit Provider Ophthalmology
DX: G45.3 Amaurosis fugax (principal)
CPT/HCPCS: 93880

== ENCOUNTER → 2024-09-06 | Outpatient (CLI) | payer MEDICARE, SELFPAY ==
[2024-09-06 12:06] LABS: AST(SGOT) 33 U/L (<=37); Alanine Aminotransfer ALT/SGPT 24 U/L (<=46); Albumin, Serum 3.7 g/dL (3.4-4.8); Alkaline Phosphatase 140 U/L (40-129); Anion Gap 11 (5-15); BUN 24 mg/dL (4-19); BUN/Creat Ratio 15.5 RATIO (10-20); Calcium,Total 9.1 mg/dL (7.6-11.0); Carbon Dioxide 29.3 mmol/L (21.0-32.0); Chloride 96 mmol/L (98-108); Cholesterol 178 mg/dL (<=200); Globulin 3.1 g/dL (2.2-4.2); Glucose 166 mg/dL (70-99); Low Density Lipoprotein Calc. 101 mg/dL; Magnesium 1.8 mg/dL (1.5-2.2); PSA,Total - Annual Screen 0.47 ng/mL (0.02-4.00); Potassium 3.8 mmol/L (3.3-5.1); Triglycerides 148 mg/dL; Very Low Density Lipoprotein 30 mg/dL (5-40); cholesterol:hdl ratio screen 3.79
== END | disposition home or self-care (01) ==
LOC: LAB 10:46
PROVIDERS: PCP Internal Medicine; Referring Provider Internal Medicine; Visit Provider Internal Medicine
DX: Z12.5 Encounter for screening for malignant neoplasm of prostate (principal); E11.9 Type 2 diabetes mellitus without complications; I10 Essential (primary) hypertension; Z13.220 Encounter for screening for lipoid disorders
CPT/HCPCS: 36415; 80053; 80061; 83036; 83735; 84153; 84443; G0103

== ENCOUNTER → 2025-02-21 | Outpatient (CLI) | payer MEDICARE, SELFPAY ==
[2025-02-21 16:46] LABS: Hematocrit 45.6 % (40-54); Hemoglobin 16.1 g/dL (13.0-16.5); Immature Granulocytes Count 0.030 X10^3/uL (0.0-0.0); Mean Corp Hgb Conc 35.3 g/dL (32-36); Mean Corpuscular Volume 85.1 fL (80-94); Mean Platelet Vol. 9.9 fl (6.2-12.0); NRBC Flagged by Analyzer 0 % (0-5); Platelet Count 219 K/mm3 (150-450); RBC Distribution Width CV 12.6 % (11.6-14.6); RBC Distribution Width SD 38.7 fl (35.1-43.9); Red Blood Count 5.36 M/mm3 (4.6-6.2); White Blood Count 9.9 K/mm3 (4.4-11.0)
[2025-02-21 16:55] LABS: Prothrombin Time (Protime)PT. 12.4 SECONDS (11.7-14.9)
[2025-02-21 17:31] LABS: AST(SGOT) 34 U/L (<=37); Alanine Aminotransfer ALT/SGPT 23 U/L (<=46); Albumin, Serum 4.0 g/dL (3.4-4.8); Alkaline Phosphatase 132 U/L (40-129); Anion Gap 10 (7-18); BUN 25 mg/dL (4-19); BUN/Creat Ratio 16.3 RATIO (10-20); Calcium,Total 9.7 mg/dL (7.6-11.0); Carbon Dioxide 30.8 mmol/L (20.0-29.0); Chloride 96 mmol/L (96-106); Cholesterol 178 mg/dL (<=200); Globulin 3.3 g/dL (2.2-4.2); Glucose 109 mg/dL (70-99); Low Density Lipoprotein Calc. 92 mg/dL; Magnesium 1.8 mg/dL (1.5-2.2); Potassium 3.6 mmol/L (3.5-5.1); Triglycerides 210 mg/dL; Very Low Density Lipoprotein 42 mg/dL (5-40); Vitamin D,25 Hydroxy 37.3 ng/mL (30-100); cholesterol:hdl ratio screen 3.52
[2025-02-21 17:52] LABS: CRP 9.09 mg/L (0.0-3.0); Ferritin 889 ng/mL (37-417)
== END | disposition home or self-care (01) ==
PROVIDERS: Internal Medicine; PCP Internal Medicine; Referring Provider Internal Medicine; Visit Provider Internal Medicine
DX: Z13.220 Encounter for screening for lipoid disorders (principal); I82.409 Acute embolism and thrombosis of unspecified deep veins of unspecified lower extremity; E11.9 Type 2 diabetes mellitus without complications; M54.50 Low back pain, unspecified; G47.33 Obstructive sleep apnea (adult) (pediatric); I10 Essential (primary) hypertension; R19.7 Diarrhea, unspecified; K74.00 Hepatic fibrosis, unspecified; R79.89 Other specified abnormal findings of blood chemistry; D58.2 Other hemoglobinopathies; E55.9 Vitamin D deficiency, unspecified
CPT/HCPCS: 36415; 80053; 80061; 82306; 82728; 83036; 83735; 84443; 85025; 85610; 86140